=== PATIENT | female | born 1960 | race Caucasian/White ===

== ENCOUNTER 2018-10-08 19:12 | Inpatient (IN) | payer BC ==
[~2018-10-08] VITALS: Ht 172.7 cm; Wt 71.2 kg
[2018-10-08 19:12] VITALS: BP 95/55
--- NOTE | 2018-10-08 19:12 | NUR ---
MELQUIADES DEMARCO ALS TO ER BED 05
--- NOTE | 2018-10-08 20:00 | NUR ---
BLOOD DRAWN BY SPORTS PHOTOGRAPHER.
[2018-10-08 20:17] LABS: HEMOGLOBIN 9.9 g/dL (12.0-16.0); MEAN CORPUSCULAR HEMOGLOBIN 28 pg (27-31); MEAN CORPUSCULAR HGB CONC 33 g/dL (33-37); PLATELET COUNT (AUTO) 458 K/uL (140-450); RED BLOOD CELL COUNT(AUTO) 3.54 MIL/uL (4.20-5.40); RED CELL DISTRIBUTION WIDTH 15.2 % (11.6-13.7); WHITE BLOOD COUNT (AUTO) 21.8 K/uL (4.8-10.8)
--- NOTE | 2018-10-08 20:33 | NUR ---
GAUGE 18 IV LINE ESTABLISHED TO THE RIGHT WRIST.
--- NOTE | 2018-10-08 20:35 | NUR ---
URINE SPECIMEN COLLECTED AND SENT TO THE LAB.
[2018-10-08 20:46] LABS: ALBUMIN 1.7 g/dL (3.4-5.0); ANION GAP 11.8 (8-16); CARBON DIOXIDE 28.5 mmol/L (21-32); POTASSIUM 4.3 mmol/L (3.5-5.1); TOTAL BILIRUBIN 0.2 mg/dL (0.0-1.0)
[2018-10-08 21:02] LABS: APPEARANCE,URINE HAZY (CLEAR); BILIRUBIN,URINE NEGATIVE (NEGATIVE); BLOOD, URINE 1+ (NEGATIVE); COLOR,URINE YELLOW (YELLOW); LEUKOCYTE ESTERASE ,URINE 3+ (NEGATIVE); NITRITE, URINE NEGATIVE (NEGATIVE); UGLUCOSE NEGATIVE (NEGATIVE)
[2018-10-08 21:03] LABS: LYMPHOCYTES % (MANUAL) 6 % (20-46); METAMYELOCYTES % 2 % (0-0); MONOCYTES % (MANUAL) 1 % (5-12)
[2018-10-08] MEDS ORDERED: VANCOMYCIN 1,000 MG in DEXTROSE 5% 250 ML IV ONE (21:05)
[2018-10-08] MEDS ORDERED: NACL 0.9% 2,500 ML IV ONE (21:05)
[2018-10-08] MEDS ORDERED: PIPERACILLIN/TAZOBACTAM 3.375 GM in DEXTROSE 5% 50 ML IV ONE (21:05)
[2018-10-08 21:12] LABS: RBC,URINE 0-5 /HPF (0-5)
[2018-10-08 21:13] LABS: URINE AMORPHOUS URATE 2+ /HPF (None Seen); WBC,URINE TOO MANY TO COUNT /HPF (0-5)
--- NOTE | 2018-10-08 21:47 | NUR ---
NS 1 LITER BOLUS AND ZOSYN 3.375 GM IVPB GIVEN ORDERED.
[2018-10-08] MEDS ORDERED: PIPERACILLIN/TAZOBACTAM 3.375 GM VIAL IV ONE (21:49)
[2018-10-08] MEDS ORDERED: VANCOMYCIN 1,000 MG VIAL ONE (21:49)
[2018-10-08] MEDS ORDERED: DOCUSATE SODIUM 100 MG GELCAP PO PRN (22:05)
[2018-10-08] MEDS ORDERED: ACETAMINOPHEN 325 MG TAB PO PRN (22:05)
[2018-10-08] MEDS ORDERED: FAMOTIDINE 20 MG/2 ML VIAL IV PRN (22:05)
--- NOTE | 2018-10-08 22:10 | NUR ---
VANCOMYCIN 1 GM IVPB GIVEN.
[2018-10-08] MEDS ORDERED: NACL 0.9% 1,000 ML IV ONE ×2 (22:15)
--- NOTE | 2018-10-08 22:41 | NUR ---
NS 1 LITER BOLUS COMPLETED. NS 1 LITER AT 100 ML STARTED. AT BEDSIDE TALKING TO FAMILY RE: ADMISSION.
--- NOTE | 2018-10-08 22:50 | NUR ---
SPOKE TO YULISSA FROM [facility] REGARDING MEDICATIONS THAT WERE GIVEN AT FACILITY, WILL FAX OVER A COPY OF RECORDS. GIANA MADE AWARE
--- NOTE | 2018-10-08 23:00 | NUR ---
ADMITTED TO TELEMETRY UNIT FOR PNEUMONIA UNDER THE CARE OF DR.JHUJHAR CASPER. PT. WILL BE GOING TO ROOM 124-B. PHOTOS TAKEN ON PT'S. WOUNDS.
[2018-10-08] MEDS ORDERED: VANCOMYCIN PER PHARMACY MC PRN (23:05)
[2018-10-08] MEDS ORDERED: NON ADHERENT DRESSING TP PRN (23:10)
[2018-10-08] MEDS ORDERED: DEXT 5% /NACL 0.9% 1,000 ML IV ONE (23:10)
[2018-10-08] MEDS ORDERED: NACL 0.9% IRR 250 ML BOTTLE IR PRN (23:10)
[2018-10-08] MEDS ORDERED: SKINTEGRITY HYDROGEL TP PRN (23:10)
[2018-10-08] MEDS ORDERED: MILD SOAP AND WATER TP PRN (23:10)
[2018-10-08 23:26] LABS: PROTHROMBIN TIME 9.6 secs (10.8-13.4)
[2018-10-08 23:33] VITALS: BP 98/43
[2018-10-08 23:35] LABS: BARBITURATE, URINE NEG. ng/ml (NEG <=200); BENZODIAZEPINE, URINE NEG. ng/mL (NEG <=200); CANNABINOID, URINE NEG. ng/mL (NEG <=50); COCAINE, URINE NEG. ng/mL (NEG <=300); OPIATE, URINE NEG. ng/mL (NEG <=2000); PHENCYCLIDINE SCREEN,URINE NEG. ng/mL (NEG <=25)
[2018-10-08 23:43] LABS: FREE T4 (FREE THYROXINE) 1.34 ng/dL (0.76-1.46); MAGNESIUM 2.1 mg/dL (1.8-2.4); THYROID STIMULATING HORMONE 1.81 uIU/mL (0.34-3.74)
[2018-10-08] MEDS ORDERED: [UNRECOGNIZED DRUG - CODE] PO (23:44)
[2018-10-08] MEDS ORDERED: MULT-1328 GT (23:44)
[2018-10-08] MEDS ORDERED: CALC-105 GT (23:44)
[2018-10-08] MEDS ORDERED: CITA10TA11 GT (23:50)
[2018-10-08] MEDS ORDERED: ACET-2619 GT (23:50)
[2018-10-08] MEDS ORDERED: FAMO-90 PO (23:50)
[2018-10-08] MEDS ORDERED: LOV40I SUBQ (23:50)
[2018-10-08] MEDS ORDERED: HYDR2TAB6 GT (23:50)
[2018-10-08] MEDS ORDERED: GLU1I SUBQ (23:50)
--- NOTE | 2018-10-08 23:53 | NUR ---
PT. WENT ON RAPID AFIB AT BS=[phone]. IV FLUIDS GIVEN WIDE OPEN. CARDIZEM 10 IVP VERBALLY ORDERED.
[2018-10-08] MEDS ORDERED: DILTIAZEM 25 MG/5 ML VIAL IVP ONE (23:55)
[2018-10-09] VITALS (78 sets, daily range): BP systolic 83–149; BP diastolic 35–92
[2018-10-09] MEDS ORDERED: MULT-1944 PO
[2018-10-09] MEDS ORDERED: ZINC220C12 PO
[2018-10-09] MEDS ORDERED: PRO5 PO
[2018-10-09] MEDS ORDERED: CHLO480L1 PO
[2018-10-09] MEDS ORDERED: BACL10TA4 PO
--- NOTE | 2018-10-09 | NUR ---
ANOTHER LITER OF NS BOLUS GIVEN. 12 LEAD EKG DONE.
[2018-10-09] MEDS ORDERED: DOCUSATE 100 MG/10 ML UDC GT PRN (00:05)
--- NOTE | 2018-10-09 00:27 | NUR ---
BP LOW AT 83/39. MD MADE AWARE. MD TO HOLD OFF ON DILTIAZEM. LEVOPHED 100 MCG IVP GIVEN ORDERED.
[2018-10-09] MEDS ORDERED: NOREPINEPHRINE 4 MG/4 ML VIAL IV ONE (00:36)
[2018-10-09] MEDS ORDERED: AMIODARONE 150 MG in DEXTROSE 5% 100 ML IV ONE ×2 (00:45→01:00)
--- NOTE | 2018-10-09 00:48 | NUR ---
AMIODARONE 150 MG IVP GIVEN.
--- NOTE | 2018-10-09 00:55 | NUR ---
HR BETTER BU STIL 130-140'S. ANOTHER OSE OF AMIODARONE 150 MG IVP GIVEN ORDERED.
[2018-10-09] MEDS ORDERED: AMIODARONE 150 MG/3 ML VIAL IV ONE ×3 (00:59→21:07)
[2018-10-09] MEDS ORDERED: MIDODRINE 5 MG TAB GT ONE (01:00)
--- NOTE | 2018-10-09 01:13 | NUR ---
BP BETTER AT 103/60 HR=60'S. PT. TRANSFERRED TO FLOOR VIA RNEY. REPORT GIVEN TO TRE CARRION. PT. WENT TO ICU ROOM 7.
--- NOTE | 2018-10-09 01:20 | NUR ---
PATIENT CAME FROM EMERGENCY VIA [facility]. REPORT GIVEN BY DYAN. PT ON TRACH TO VENT, COLOSTOMY BAG, WIGGINS BAG, NO FLUIDS. IV IN RIGHT THUMB. BED IN LOWEST POSITION, HOB ELEVATED 30 DEGREES, WOUNDS CHECKED WITH MD WADSWORTH. 2 BILATERAL BUTTOCKS STAGE 4 AND ONE SACRAL PRESSURE ULCER. ONE HEEL WOUND SCABBED OVER. SMALL SCABS IN BOTH ARMS BILATERALLY.DRESSINGS IN PLACE. BP LOW. GTUBE PRESENT. STABLE AT THIS TIME. DAUGHTER ROBINA PRESENT TO HELP WITH ADMISSION ASSESSMENT. MD CALLED TO FOLLOW UP WITH PATIENT. WILL CONTINUE TO MONITOR. OPENS EYES TO TALKING. COLOR WNL. LUNGS RHONCHI. HR CLEAR AND REGULAR. URINE PRESENT IN WIGGINS BAG AND STOOL IN COLOSTOMY BAG. WILL CONTINUE TO MONITOR. NO S/S OF DISTRESS. PERRL
[2018-10-09] MEDS ORDERED: NOREPINEPHRINE IV STA (01:21)
[2018-10-09] MEDS ORDERED: NACL 0.9% IV STA (01:21)
--- NOTE | 2018-10-09 01:38 | NUR ---
PHONE CALL TO DR BARRY; MADE AWARE PT ADMITTED HERE IN ICU.QUESTIONS ANSWERED.MD TO SEE PT.
[2018-10-09] MEDS ORDERED: GLUCAGON 1 MG VIAL SUBQ PRN (02:35)
[2018-10-09] MEDS ORDERED: MAGNESIUM HYDROXIDE 2400 MG/30 ML UDC GT PRN (02:35)
[2018-10-09] MEDS ORDERED: ACETAMINOPHEN 325 MG TAB GT PRN (02:35)
--- NOTE | 2018-10-09 03:00 | NUR ---
MEDS GIVEN AND PATIENT TOLERATING WELL.WILL CONTINUE TO FOLLOW UP
[2018-10-09] MEDS: MIDODRINE 5 MG TAB PO SCH ×4 (03:25→21:17)
[2018-10-09] MEDS ORDERED: DEXT 5% /NACL 0.9% 1,000 ML IV SCH (05:25)
[2018-10-09] MEDS ORDERED: NOREPINEPHRINE 4 MG in DEXTROSE 5% 250 ML IV PRN (05:30)
[2018-10-09] MEDS ORDERED: PIPERACILLIN/TAZOBACTAM 2.25 GM VIAL IV ONE (05:33)
[2018-10-09] MEDS ORDERED: ALBUTEROL SULFATE/IPRATROPIU 3 ML SOL IH PRN (05:40)
[2018-10-09] MEDS: ALBUTEROL SULFATE/IPRATROPIU 3 ML SOL IH SCH ×3 (06:00→19:06)
[2018-10-09] MEDS ORDERED: ALBUTEROL SULFATE/IPRATROPIU 3 ML SOL IH SCH (06:00)
[2018-10-09] MEDS: PIPERACILLIN/TAZOBACTAM 2.25 GM in DEXTROSE 5% 50 ML IV SCH ×3 (06:07→18:03)
[2018-10-09] MEDS ORDERED: DOPamine 400 MG/D5W PREMIX 250 ML IV SCH (06:30)
[2018-10-09] MEDS ORDERED: NACL 0.9% 1,000 ML IV ONE ×2 (06:30)
--- NOTE | 2018-10-09 06:32 | NUR ---
DR. BARRY PRESENT AT BEDSIDE. WILL FOLLOW UP ON NEW ORDERS. WILL CONTINUE TO MONITOR.
--- NOTE | 2018-10-09 06:40 | NUR ---
dr samayoa at bedside' updated on pts present condition.questions answered. ordered to give 1 liter normal saline bolus and to start dopamine at 5mcg/kg/min; dr samayoa aware that pt on has peripheral iv at this time to rt hand
--- NOTE | 2018-10-09 06:42 | NUR ---
rec'd pt on carescape vent settings ac 14 vt 450 peep 5 fio2 40% alarms on and audible and ambu bag at side of rayna and vent is plugged into red outlet, no hhn given pt is sleeping with no signs of distress at this time, b\s are rhonchi bilaterally, sxn pt moderate amt of cream color secretions,pt is trach with shiley 6 and skin integrity is intact.
[2018-10-09] MEDS ORDERED: DOPamine 400 MG/D5W PREMIX 250 ML IV ONE (06:44)
--- NOTE | 2018-10-09 06:47 | NUR ---
DR. WADSWORTH AT PATIENT BEDSIDE. WILL FOLLOW UP IF ORDERS GIVEN. WILL CONTINUE AMY MONITOR
--- NOTE | 2018-10-09 08:00 | NUR ---
PATIENT OPENS EYES SPONTANEOUSLY, NOT OBEYING COMMANDS. WITH TRACHEOSTOMY TO VENTILATOR FIO2 40% VT 450 PEEP 5,AC14, SO2 >94%, ATRIAL FIBRILLATION ON MONITOR, WITH PEG TUBE-CLAMPED, NO RESIDUALS AND PATENT ON AUSCULTATION, WITH WIGGINS CATHETER CLEAR YELLOW URINE NOTED, CONTRACTED UPPER ARMS, IV PERIPHERAL LINE GAUGE 18 AT RIGHT THUMB NORMAL SALINE 100 ML/HR./ DOPAMINE 5 MCG/KG/MIN. TURNED OFF DUE TO HEART RATE >100
[2018-10-09] MEDS: HYDROcodone/APAP 7.5/325 MG 1 TAB PO PRN ×2 (08:09→13:46)
[2018-10-09] MEDS: CALCIUM CARB/VIT-D 500 MG/200 IU 1 TAB GT SCH (08:09)
[2018-10-09] MEDS: BACLOFEN 10 MG TAB PO SCH ×3 (08:09→16:53)
[2018-10-09] MEDS: FAMOTIDINE 20 MG TAB GT SCH ×2 (08:09→21:18)
[2018-10-09] MEDS: ZINC SULF 220 MG CAP GT SCH (08:09)
[2018-10-09] MEDS: MULTIVITAMIN/MINERALS 1 TAB GT SCH (08:10)
[2018-10-09] MEDS: LACTOBACILLUS RHAMNOSUS GG 1 EACH CAP GT SCH (08:10)
[2018-10-09] MEDS: LORazepam 2 MG/ML VIAL IM/IVP PRN ×2 (08:31→22:14)
[2018-10-09] MEDS ORDERED: NON-FORMULARY ITEM (Chlorhexidine Gluconate (Periogard 480 Ml) 15 ML) PO SCH (09:00)
[2018-10-09] MEDS ORDERED: LACTOBACILLUS RHAMNOSUS GG 1 EACH CAP PO SCH (09:00)
[2018-10-09] MEDS ORDERED: [UNRECOGNIZED DRUG - MIXTURE] PO SCH (09:00)
--- NOTE | 2018-10-09 09:30 | NUR ---
INFORMED DR. GUZMAN OF PATIENT'S SBP <80. PER DR. GUZMAN SHE WILL INSERT CENTRAL LINE FIRST AND THEN START LEVOPHED. CALLED PHARMACY TO REQUEST STOCK OF LEVOPHED.
[2018-10-09] MEDS: CITALOPRAM 20 MG TAB GT SCH (09:31)
[2018-10-09 10:03] LABS: HEMATOCRIT 26.7 % (36-48); HEMOGLOBIN 8.7 g/dL (12.0-16.0); MEAN CORPUSCULAR HEMOGLOBIN 28 pg (27-31); MEAN CORPUSCULAR HGB CONC 33 g/dL (33-37); MEAN CORPUSCULAR VOLUME 86.5 fL (80-94); PLATELET COUNT (AUTO) 359 K/uL (140-450); RED BLOOD CELL COUNT(AUTO) 3.09 MIL/uL (4.20-5.40); RED CELL DISTRIBUTION WIDTH 15.1 % (11.6-13.7); WHITE BLOOD COUNT (AUTO) 18.9 K/uL (4.8-10.8)
--- NOTE | 2018-10-09 10:23 | NUR ---
DR. GUZMAN AT BEDSIDE FOR CENTRAL LINE INSERTION
--- NOTE | 2018-10-09 10:41 | NUR ---
INFORMED DR. GUZMAN OF PATIENT'S LATEST LACTIC ACID LEVEL
[2018-10-09 10:46] LABS: BASOPHILS % (MANUAL) 0 % (0-2); EOSINOPHILS % (MANUAL) 0 % (0-4); LYMPHOCYTES % (MANUAL) 6 % (20-46); METAMYELOCYTES % 1 % (0-0); MONOCYTES % (MANUAL) 5 % (5-12)
[2018-10-09 10:51] LABS: ANION GAP 15.9 (8-16); CARBON DIOXIDE 23.3 mmol/L (21-32); POTASSIUM 3.2 mmol/L (3.5-5.1)
[2018-10-09 10:53] LABS: CREATININE 1.6 mg/dL (0.6-1.3)
[2018-10-09] MEDS: NACL 0.9% 1,000 ML IV SCH (11:28)
[2018-10-09] MEDS ORDERED: POTASSIUM CHLORIDE 40 MEQ, LIDOCAINE MPF 1% - 5 mL VIAL 25 MG in NACL 0.9% 250 ML IV ONE (13:10)
[2018-10-09] MEDS ORDERED: CALCIUM ACETATE 667 MG TAB PO SCH (13:19)
[2018-10-09] MEDS ORDERED: THERAHONEY GEL 42.5 GM TP PRN (13:20)
[2018-10-09] MEDS: HYDRAGUARD CREAM TP PRN (14:04)
[2018-10-09] MEDS: Z-GUARD PASTE TP PRN (14:04)
--- NOTE | 2018-10-09 16:05 | NUR ---
DR. BENSON AT BEDSIDE MADE AWARE PATIENT HAD EPISODE OF ATRIAL FIBRILLATION AVR AT START OF SHIFT AND ALSO NOW PATIENT IS BACK TO ATRIAL FIBRILLATION RVR. ORDERS RECEIVED FOR DIGOXIN
[2018-10-09] MEDS ORDERED: DIGOXIN 0.25 MG/ML AMP IV SCH (16:10)
[2018-10-09] MEDS ORDERED: VANCOMYCIN HCL 750 MG in DEXTROSE 5% 250 ML IV SCH (18:00)
--- NOTE | 2018-10-09 19:03 | NUR ---
PAGED DR. PERES THROUGH HIS EXCHANGE THAT PATIENT IS STILL AFIB AFTER DIGOXIN IV WAS GIVEN
--- NOTE | 2018-10-09 19:16 | NUR ---
Received pt on vent support at documented settings, suctioned moderate amounts of thick green yellow secretions, hhn tx given, tolerated well, no resp distress or SOB noted at this time, Shiley 6 trach secured/patent/midline, alarms set and audible, ambu bag at bedside, vent plugged into red outlet and wiped down, cont pulse ox on, will cont to monitor.
--- NOTE | 2018-10-09 19:25 | NUR ---
RECEIVED CHANGE OF SHIFT REPORT FROM AM NURSE MONICA. PATIENT IS SEDATED AND ON TRACH TO VENT FIO2 40%, AC 14, VT 450, AND FLOW 45 L/MIN. PERRLA IS PRESENT. SKIN IS WARM, DRY, WITH PRESSURE ULCERS ON BILATERAL BUTTOCKS, SACRAL AREA, AND RIGHT HEEL. LUNG SOUNDS ARE CLEAR RIGHT UPPER/LOWER LOBES, BUT FINE CRACKLES ARE HEARD ON LEFT UPPER/LOWER LOBES. SINUS TACH ON TELESALES SPECIALIST WITH INTERMITTENT A FIB. S1 AND S2 SOUND PRESENT. LEFT THUMB PATENT 18 GAUGE IV SITE WITH DRESSING/SITE DRY AND INTACT. RIGHT IJ TRIPLE LUMEN CENTRAL LINE WITH ALL LUMENS PATENT AND DRESSING/SITE DRY AND INTACT. NORMAL SALINE RUNNING AT 100ML/H, 5ML/H OF VANCOMYCIN, AND 1 MCH/MIN OF lEVOPHED. PATIENT HAS LEFT SIDE COLOSTOMY BAG WITH SURROUNDING SITE DRY/INTACT, WIGGINS CATHETER IN PLACE WITH CLEAR YELLOW URINE NOTED. PATIENT HAS RIGHT PEG TUBE WITH NO RESIDUALS NOTED, AND LINE IS PATENT. PATIENT'S BED IS IN LOW POSITION WITH CALL LIGHT IN REACH. WILL CONTINUE TO MONITOR
[2018-10-09] MEDS ORDERED: AMIODARONE 450 MG in DEXTROSE 5% 250 ML IV SCH (19:35)
--- NOTE | 2018-10-09 19:37 | NUR ---
DR. PERES CALLED BACK AND INFORMED OF PATIENT'S ATRIAL FIBRILLATION RVR. ORDERS RECEIVED TO GIVE 150 MG AMIODARONE IV PUSH ONCE, START PATIENT ON AMIODARONE DRIP PER PROTOCOL OVER 24 HOURS READ BACK. INFORMED RESIDENT DR. WOOD OF THIS ORDER
[2018-10-09] MEDS ORDERED: AMIODARONE 150 MG in DEXTROSE 5% 100 ML IV SCH (21:00)
[2018-10-09] MEDS ORDERED: AMIODARONE 450 MG/9 ML VIAL IV ONE (21:15)
[2018-10-09] MEDS: CHLORHEXIDINE GLUCONATE 0.12% 473 ML LIQ MM SCH (21:55)
--- NOTE | 2018-10-09 22:14 | NUR ---
GAVE ATIVAN 1 MG PRN FOR ANXIETY/RESTLESSNESS. PATIENT TOLERATED MEDICATION WELL. WILL CONTINUE TO MONITOR.
[2018-10-09] MEDS: METOPROLOL 5 MG/5 ML VIAL IVP PRN (23:25)
--- NOTE | 2018-10-09 23:25 | NUR ---
GAVE LOPRESSOR 5MG IVP PRN FOR HEART RATE GREATER THAN 110. PATIENT TOLERATED MEDICATION WELL AND HEART RATE DECREASE TO DESIRED RATE BELOW 110. WILL CONTINUE TO MONITOR.
[2018-10-10] VITALS (48 sets, daily range): BP systolic 80–159; BP diastolic 5–97
[2018-10-10] MEDS: PIPERACILLIN/TAZOBACTAM 2.25 GM in DEXTROSE 5% 50 ML IV SCH ×5 (00:50→23:54)
--- NOTE | 2018-10-10 01:10 | NUR ---
PATIENT RESTING IN BED. NO COMPLAINTS NOR SIGNS OF ACUTE DISTRESS AT THIS TIME. WILL CONTINUE TO MONITOR.
[2018-10-10] MEDS: LORazepam 2 MG/ML VIAL IM/IVP PRN ×2 (02:17→15:00)
--- NOTE | 2018-10-10 02:17 | NUR ---
GAVE ATIVAN 1 MG PRN FOR ANXIETY/RESTLESSNESS. PATIENT TOLERATED MEDICATION WELL. WILL CONTINUE TO MONITOR.
[2018-10-10] MEDS ORDERED: AMIODARONE 450 MG/9 ML VIAL IV ONE (03:52)
--- NOTE | 2018-10-10 04:30 | NUR ---
MADE AWARE THAT AMIODORANE DRIPS WAS ON HOLD D/T BRADYCARDIA HR 54-58X/MIN. ALSO AWARE THAT LEVOPHED WAS RE STARTED AT 1 MCG/MIND/T LOW BP 80/36
[2018-10-10 04:51] LABS: BASOPHILS % (AUTO) 0.1 % (0.0-2.0); EOSINOPHILS # (AUTO) 0.1 K/uL (0-0.4); EOSINOPHILS % (AUTO) 0.7 % (0.0-4.0); HEMATOCRIT 24.4 % (36-48); HEMOGLOBIN 7.9 g/dL (12.0-16.0); LYMPHOCYTES % (AUTO) 7.3 % (20.5-51.1); MEAN CORPUSCULAR HEMOGLOBIN 28 pg (27-31); MEAN CORPUSCULAR HGB CONC 33 g/dL (33-37); MEAN CORPUSCULAR VOLUME 87.2 fL (80-94); MONOCYTES # (AUTO) 0.8 K/uL (0.8-1.0); MONOCYTES % (AUTO) 5.9 % (1.7-9.3); PLATELET COUNT (AUTO) 328 K/uL (140-450); WHITE BLOOD COUNT (AUTO) 13.9 K/uL (4.8-10.8)
[2018-10-10] MEDS: THERAHONEY GEL 42.5 GM TP SCH ×2 (05:00→13:49)
--- NOTE | 2018-10-10 05:00 | NUR ---
PERFORMED WOUND CARE ON ALL PRESSURE ULCERS AND CHANGED ALL DRESSINGS. GAVE SPONGE BED BATH. PERFORMED ESTEBAN/WIGGINS CATHETER CARE. PERFORMED ORAL CARE. CHANGED ALL LINENS. PATIENT TOLERATED ALL CARE AT THIS TIME WELL. WILL CONTINUE TO MONITOR.
[2018-10-10] MEDS: HYDROcodone/APAP 7.5/325 MG 1 TAB PO PRN ×2 (05:20→13:48)
--- NOTE | 2018-10-10 05:20 | NUR ---
GAVE PRN NORCO 7.5/325MG (1 TABLET) PO FOR MODERATE PAIN (FLACC: 4). PATIENT TOLERATED MEDICATION WELL. WILL CONTINUE TO MONITOR.
[2018-10-10 05:32] LABS: ANION GAP 12.4 (8-16); CARBON DIOXIDE 26.1 mmol/L (21-32); POTASSIUM 3.5 mmol/L (3.5-5.1)
[2018-10-10 05:37] LABS: MAGNESIUM 1.6 mg/dL (1.8-2.4)
[2018-10-10] MEDS: MIDODRINE 5 MG TAB PO SCH ×3 (05:57→20:19)
[2018-10-10] MEDS: ALBUTEROL SULFATE/IPRATROPIU 3 ML SOL IH SCH ×3 (06:24→19:19)
--- NOTE | 2018-10-10 06:24 | NUR ---
RECEIVED PT ON CARESCAPE ON DOCUMENTED, ALARMS ARE ON AUDIBLE, PTS TRACH SHILEY 6 IS SECURE, PT IN HF IRRITABLE, HHN GIVEN I\L WITH 3 MG DUONEB, BMV HOB, VENT PLUGGED INTO RED OUTLET
[2018-10-10] MEDS ORDERED: MAG SULF 2000 MG/WATER PREMIX 50 ML IV SCH (07:00)
--- NOTE | 2018-10-10 07:00 | NUR ---
PER DR.FERNANDEZ GROSS PUT ON HOLD AT THIS TIME.
--- NOTE | 2018-10-10 07:18 | NUR ---
GAVE CHANGE OF SHIFT BEDSIDE REPORT TO AM NURSE. PATIENT ASLEEP AT THIS TIME.
--- NOTE | 2018-10-10 07:56 | NUR ---
PATIENT HAS BEEN SCREENED AND CATEGORIZED HIGH NUTRITION RISK. PATIENT WILL BE SEEN WITHIN 1-2 DAYS OF ADMISSION. 10/10/[address]
--- NOTE | 2018-10-10 08:00 | NUR ---
PATIENT AWAKE, DOES NOT OBEY COMMANDS OR MAKE NEEDS KNOWN, WITH TRACHEOSTOMY TO VENTILATOR AC 14 FIO2 30% VT 450 PEEP 5 SO2 >94%, SINUS RHYTHM ON MONITOR, WITH PEG TUBE AND JEVITY ONGOING 50 ML/HR., NO GASTRIC RESIDUALS UPON CHECKING, SOFT ABDOMEN, COLOSTOMY IN LEFT LOWER QUADRANT WITH SOFT BROWN STOOL NOTED IN THE BAG, WITH WIGGINS CATHETER, CLEAR YELLOW URINE NOTED, WITH CENTRAL LINE RIGHT INTERNAL JUGULAR TRIPLE LUMEN-NORMAL SALINE 100 ML/HR INFUSING, CENTRAL LINE SITE ASYMPTOMATIC, BOTH UPPER ARMS CONTRACTED, BILATERAL LEGS WITH FOAM BOOTS, DECUBITUS ULCER AT LEFT AND RIGHT BUTTOCKS AND IN THE SACRAL AREA, RIGHT HEEL ALL WITH CLEAN DRY INTACT DRESSING
[2018-10-10] MEDS: CHLORHEXIDINE GLUCONATE 0.12% 473 ML LIQ MM SCH ×2 (09:00→20:40)
[2018-10-10] MEDS: MULTIVITAMIN/MINERALS 1 TAB GT SCH (09:13)
[2018-10-10] MEDS: ZINC SULF 220 MG CAP GT SCH (09:13)
[2018-10-10] MEDS: CALCIUM CARB/VIT-D 500 MG/200 IU 1 TAB GT SCH (09:13)
[2018-10-10] MEDS: FAMOTIDINE 20 MG TAB GT SCH ×2 (09:13→20:19)
[2018-10-10] MEDS: LACTOBACILLUS RHAMNOSUS GG 1 EACH CAP GT SCH (09:14)
[2018-10-10] MEDS: BACLOFEN 10 MG TAB PO SCH ×3 (09:14→16:33)
[2018-10-10] MEDS: CITALOPRAM 20 MG TAB GT SCH (09:16)
--- NOTE | 2018-10-10 10:35 | NUR ---
DR. BENSON AT BEDSIDE
--- NOTE | 2018-10-10 10:36 | NUR ---
PATIENT'S DAUGHTER ROBINA ALSO AT BEDSIDE AND TALKED TO DR. BENSON
[2018-10-10] MEDS ORDERED: fentaNYL 0.05 MG/ML VIAL IVP PRN (10:40)
--- NOTE | 2018-10-10 13:00 | NUR ---
WOUND CARE DONE
[2018-10-10] MEDS: NACL 0.9% 1,000 ML IV SCH ×3 (13:49→18:23)
--- NOTE | 2018-10-10 14:45 | NUR ---
RD RECOMMENDATIONS: 1. RECOMMEND INCREASE JEVITY 1.2 TO 70ML/HR TO PROVIDE 2160KCAL, 92G PROTEIN AND 1356ML FLUID. THIS MEETS 100% OF CALORIC AND PROTEIN NEEDS. 2. RECOMMEND ADDING VITAMIN C 500MG BID FOR WOUND HEALING. 3. RD WILL F/U 2-3 DAYS; HIGH RISK. ANN NAIK, RD
[2018-10-10] MEDS: VANCOMYCIN 1,000 MG in DEXTROSE 5% 250 ML IV SCH (15:00)
--- NOTE | 2018-10-10 18:52 | NUR ---
PATIENT CONTINUES TO BE AWAKE, DOES NOT OBEY COMMANDS, SINUS RHYTHM ON MONITOR, NO DRIPS, INVASIVE LINES IN SITU
--- NOTE | 2018-10-10 19:11 | NUR ---
REPORT GIVEN TO NIGHT RN
--- NOTE | 2018-10-10 19:20 | NUR ---
RECEIVED CHANGE OF SHIFT REPORT FROM AM NURSE MONICA. PATIENT IS LETHARGIC AND ON TRACH TO VENT FIO2 30%, AC 14, VT 450, AND FLOW 45 L/MIN. PERRLA IS PRESENT WITH PUPILS BILATERALLY SIZE 3MM. SKIN IS WARM, DRY, WITH PRESSURE ULCERS ON BILATERAL BUTTOCKS, SACRAL AREA, AND RIGHT HEEL - ALL DRESSINGS ARE DRY AND INTACT. PULSES 2+ BILATERAL UPPER AND LOWER EXTREMITIES. LUNG SOUNDS ARE CLEAR BUT DIMINISHED BILATERALLY IN THE LOWER LOBES. NSR ON MODEL HOME SALES GREETER. S1 AND S2 SOUND PRESENT. LEFT THUMB PATENT 18 GAUGE IV SITE WITH DRESSING/SITE DRY AND INTACT. RIGHT IJ TRIPLE LUMEN CENTRAL LINE WITH ALL LUMENS PATENT AND DRESSING/SITE DRY AND INTACT. NORMAL SALINE RUNNING AT 100ML/HR, AND 50ML/HR OF ZOSIN. PATIENT IS ON G TUBE FEEDING RUNNING JEVITY 1.2 AT 70ML/HR WITH 100CC H2O FLUSH Q6H - NO GASTRIC RESIDUALS AT THIS TIME, AND G TUBE IS PATENT. WIGGINS CATHETER IN PLACE, URINE IS ROBINA AND CLEAR. BED LEFT IN LOW SEMI FOWLERS POSITION, SIDE RAILS UPX2 WITH CALL LIGHT WITHIN REACH. WILL CONTINUE TO MONITOR.
--- NOTE | 2018-10-10 19:27 | NUR ---
Received pt on vent support at documented settings, suctioned small amounts of thick green yellow secretions, hhn tx given, tolerated well, Shiley 6 trach secured/patent/midline, alarms set and audible, vent plugged into red outlet, ambu bag at bedside, cont pulse ox on, will cont to monitor.
--- NOTE | 2018-10-10 20:15 | NUR ---
INFORMED DR. WOOD OF PATIENT'S LOW HGB: 7.9 BEFORE GIVING THE SCHEDULED [address] WOOD GAVE APPROVAL TO CONTINUE WITH SCHEDULED HEPARIN INJECTION. WILL CONTINUE TO MONITOR PATIENT.
--- NOTE | 2018-10-10 20:30 | NUR ---
PERFORMED SCHEDULED ORAL CARE, REPOSITIONED PATIENT, AND CHANGED BEDSIDE TOWEL. NO COMPLAINTS NOR SIGNS OF ACUTE DISTRESS AT THIS TIME. WILL CONTINUE TO MONITOR.
--- NOTE | 2018-10-10 22:20 | NUR ---
PATIENT RESTING IN BED. NO COMPLAINTS NOR SIGNS OF ACUTE DISTRESS AT THIS TIME. WILL CONTINUE TO MONITOR.
[2018-10-11] VITALS (24 sets, daily range): BP systolic 104–144; BP diastolic 60–87
[2018-10-11] MEDS: NACL 0.9% 1,000 ML IV SCH ×3 (00:22→19:01)
--- NOTE | 2018-10-11 01:05 | NUR ---
PATIENT RESTING IN BED, AND REPOSITION HER PILLOW TO A MORE COMFORTABLE POSITION. NO COMPLAINTS NOR SIGNS OF ACUTE DISTRESS AT THIS TIME. WILL CONTINUE TO MONITOR.
[2018-10-11] MEDS: THERAHONEY GEL 42.5 GM TP SCH ×2 (01:14→13:18)
[2018-10-11] MEDS: MIDODRINE 5 MG TAB PO SCH ×3 (04:47→20:03)
[2018-10-11 04:56] LABS: ANION GAP 11.9 (8-16); CARBON DIOXIDE 23.3 mmol/L (21-32); CREATININE 0.8 mg/dL (0.6-1.3); POTASSIUM 3.2 mmol/L (3.5-5.1)
[2018-10-11 04:59] LABS: MAGNESIUM 1.5 mg/dL (1.8-2.4)
[2018-10-11] MEDS: PIPERACILLIN/TAZOBACTAM 2.25 GM in DEXTROSE 5% 50 ML IV SCH ×3 (06:06→18:07)
[2018-10-11] MEDS: ALBUTEROL SULFATE/IPRATROPIU 3 ML SOL IH SCH ×3 (06:40→19:24)
[2018-10-11 06:43] LABS: PHOSPHORUS 3.1 mg/dL (2.5-4.9)
--- NOTE | 2018-10-11 07:20 | NUR ---
ENDORSED PATIENT TO AM NURSE. PATIENT SLEEPING COMFORTABLY AT THIS TIME.
[2018-10-11 07:44] LABS: MEAN CORPUSCULAR HGB CONC 33 g/dL (33-37); PLATELET COUNT (AUTO) 307 K/uL (140-450)
--- NOTE | 2018-10-11 07:45 | NUR ---
RECEIVED BED SIDE REPORT FROM NIGHT NURSE. PT IT AWAKE AND RESPONSE TO SIMPLE COMMANDS WITH MOUTH WORDS AND FACIAL EXPRESSION. PERRL. TRACH TO VENT AC 14, TV 450, 30 FIO2, PEEP 5. BILATERAL LUNGS SOUND WITH RHONCHI. SUCTIONED MODERATE AMOUNT OF WHITE SPUTUM. BILATERAL UPPER AND LOWER EXTREMITIES WITH SEVERE CONTRACTURES. RIGHT IJ WITH TRIPLE LUMEN AND RIGHT THUMB 18G SALINE LOCK. ALL PATENT AND ASYMPTOMATIC. IVF RUNNING AT 100 CC/HR. GT RUNNING WITH JEVITY 1.2 WITH 70CC/HR AND H2O 100ML Q6HR. RESIDUAL 5ML NOTED FROM GT. HOB ELEVATED AT 30 DEGREES. COLOSTOMY ON LEFT ABD WITH SMALL AMOUNT OF PASTY+ LIQUID BROWN STOOL NOTED IN THE BAG. WIGGINS CATHETER DRAINING CLEAR YELLOW URINE. BILATERAL HEEL PROTECTOR IN PLACE. DRESSING INTACT ON THE BUTTOCKS AND SACRUM AREA. AFEBRILE. CALL LIGHT IN REACH AND WILL CONTINUE TO MONITOR.
--- NOTE | 2018-10-11 08:00 | NUR ---
DR. CASPER AND RESIDENTS MAKING ROUNDS AT THIS TIME.
[2018-10-11 08:04] LABS: HEMOGLOBIN 7.7 g/dL (12.0-16.0); RED BLOOD CELL COUNT(AUTO) 2.76 MIL/uL (4.20-5.40); WHITE BLOOD COUNT (AUTO) 11.6 K/uL (4.8-10.8)
[2018-10-11 08:05] LABS: HEMATOCRIT 23.8 % (36-48); MEAN CORPUSCULAR HEMOGLOBIN 28 pg (27-31); MEAN CORPUSCULAR VOLUME 86.4 fL (80-94); RED CELL DISTRIBUTION WIDTH 15.1 % (11.6-13.7)
[2018-10-11 08:08] LABS: EOSINOPHILS % (MANUAL) 1 % (0-4); LYMPHOCYTES % (MANUAL) 10 % (20-46); MONOCYTES % (MANUAL) 8 % (5-12)
[2018-10-11] MEDS: LACTOBACILLUS RHAMNOSUS GG 1 EACH CAP GT SCH (08:13)
[2018-10-11] MEDS: BACLOFEN 10 MG TAB PO SCH ×3 (08:14→17:13)
[2018-10-11] MEDS: MULTIVITAMIN/MINERALS 15 ML UDBTL GT SCH (08:14)
[2018-10-11] MEDS: CALCIUM CARB/VIT-D 500 MG/200 IU 1 TAB GT SCH (08:14)
[2018-10-11] MEDS: ZINC SULF 220 MG CAP GT SCH (08:14)
[2018-10-11] MEDS: FAMOTIDINE 20 MG TAB GT SCH ×2 (08:14→20:03)
[2018-10-11] MEDS: CITALOPRAM 20 MG TAB GT SCH (08:14)
[2018-10-11] MEDS: CHLORHEXIDINE GLUCONATE 0.12% 473 ML LIQ MM SCH (08:15)
[2018-10-11] MEDS: HYDROcodone/APAP 7.5/325 MG 1 TAB PO PRN ×2 (08:28→20:54)
--- NOTE | 2018-10-11 08:30 | NUR ---
PT C/O GENERALIZED PAIN MORE IN THE NECK. REPOSITIONED AND NON PHARMACOLOGICAL INTERVENTIONS PROVIDED BUT FLACC 4. NORCO ADMINISTERED ORDERED. WILL CONTINUE TO MONITOR.
--- NOTE | 2018-10-11 09:45 | NUR ---
APPLIED HEAT PAD TO THE RIGHT SHOULDER ORDERED.
[2018-10-11] MEDS ORDERED: MAG SULF 2000 MG/WATER PREMIX 100 ML IV SCH (10:00)
--- NOTE | 2018-10-11 10:10 | NUR ---
REPOSITIONED FOR COMFORT AND TO OFF LOAD.
[2018-10-11] MEDS ORDERED: POTASSIUM CHLORIDE 20% 40 MEQ/15 ML UDC GT SCH (10:15)
--- NOTE | 2018-10-11 10:35 | NUR ---
DR. NELSON IN TO SEE PT.
--- NOTE | 2018-10-11 10:39 | NUR ---
ECHO BEING PERFORMED AT BED SIDE.
[2018-10-11] MEDS ORDERED: PROBIOTIC SCREEN 1 EA MISC MC PRN ×2 (11:55→13:25)
--- NOTE | 2018-10-11 12:05 | NUR ---
REPOSITIONED FOR COMFORT AND TO OFF LOAD. PT REQUESTED THE HEAT PAD FROM THE SHOULDER TO BE REMOVED AND DONE REQUESTED.
[2018-10-11] MEDS: HYDROmorphone 2 MG TAB GT PRN (12:23)
--- NOTE | 2018-10-11 12:25 | NUR ---
DR. BENSON IN TO SEE PT.
[2018-10-11] MEDS: ONDANSETRON 4 MG/2 ML VIAL IM/IVP PRN (12:33)
--- NOTE | 2018-10-11 12:33 | NUR ---
PT C/O NAUSEA. RESIDUAL 10ML. HOB KEPT ELEVATED 30 DEGREES. ZOFRAN ADMINISTERED ORDERED.
--- NOTE | 2018-10-11 14:02 | NUR ---
REPOSITIONED FOR COMFORT AND OFF LOADED.
[2018-10-11] MEDS: VANCOMYCIN 1,000 MG in DEXTROSE 5% 250 ML IV SCH (15:04)
[2018-10-11] MEDS: ALBUTEROL SULFATE/IPRATROPIU 3 ML SOL IH PRN (15:15)
--- NOTE | 2018-10-11 16:33 | NUR ---
RECEIVED CULTURE RESULTS. HEALTH EDUCATION DIRECTOR+ FOR URINE AND ESBL+ SPUTUM. RESULTS REPORTED TO DR. MITCHELL. CONTACT ISOLATION PRECAUTIONS RECEIVED.
[2018-10-11] MEDS ORDERED: FERROUS SULFATE 325 MG TABEC PO SCH (17:00)
--- NOTE | 2018-10-11 17:55 | NUR ---
REPOSITIONED FOR COMFORT AND OFF LOAD. SUCTION VIA TRACH WITH MODERATE AMOUNT OF WHITE SPUTUM. CONTACT PRECAUTION CARRIED OUT WHILE CARING.
--- NOTE | 2018-10-11 17:58 | NUR ---
DR. HOWE MADE AWARE OF IRON ORDER UNABLE TO BE ADMINISTERED DUE TO ORDER READS ENTERIC COATED VIA PO. PT NPO AND G-TUBE FEEDING.
--- NOTE | 2018-10-11 19:08 | NUR ---
BED SIDE REPORT GIVEN TO NIGHT NURSE. PT VITAL SIGNS STABLE. ALL SAFETY PRECAUTIONS ARE IN PLACE.
--- NOTE | 2018-10-11 19:20 | NUR ---
RECEIVED PT FROM AM NURSE. PT AT BED AWAKE, WATCHING TV, PERRLA 3MM, A&O X2, PT NONVERBAL BUT MAKE NEEDS KNOWN BY MOUTHING OF WORDS. HEART RATE REGULAR, SR ON MONITOR, S1 S2 PRESENT, PULSES 2+ BILATERAL LOWER AND UPPER EXTREMITIES, CAP REFILL <3S, ABDOMEN SOFT, ROUND, NONDISTENDED, NONTENDER, COLOSTOMY APPLIANCE IN PLACE, DRAINING YELLOWISH BROWN SOFT STOOL, BOWEL SOUNDS ACTIVE IN ALL QUADRANTS, GTUBE IN PLACE RUNNING JEVITY 1.2 AT 70 ML/HR WATER FLUSH OF 100 ML Q6H, NO RESIDUAL NOTED, WIGGINS CATHETER IN PLACE, DRAINING YELLOW URINE, PT HAS BILATERAL UPPER EXTREMITIES CONTRACTION, GENERALIZED WEAKNESS, HEEL PROTECTORS IN PLACE AT BILATERAL LOWER EXTREMITIES, SKIN IS DRY, NONINTACT, DRESSINGS IN PLACE, DRY AND INTACT, RIGHT IJ CENTRAL LINE TRIPLE LUMEN, CURRENTLY RUNNING NS AT 100 ML/HR. RIGHT THUMB 18 GAUGE SALINE LOCK. HOB 30 DEGREES, SIDERAILS UP X2, BED AT LOWEST POSITION, SEIZURE PRECAUTION IN PLACE.
--- NOTE | 2018-10-11 21:00 | NUR ---
MEDICATIONS GIVEN. SUCTIONED PT AND PERFORMED VAP ORAL CARE, SUCTIONED MODERATE AMOUNT OF WHITE MUCOUS. PT TOLERATED PROCEDURE WELL.
[2018-10-11] MEDS: METOPROLOL 5 MG/5 ML VIAL IVP PRN (21:50)
--- NOTE | 2018-10-11 21:50 | NUR ---
PT HR ELEVATED 163. A.FIB ON MONITOR. ADMINISTERED PRN. LOPRESSOR 5MG IVP. SUCTIONED PT WITH MODERATE AMOUNT OF WHITE SPUTUM.
--- NOTE | 2018-10-11 22:20 | NUR ---
DR. CARRILLO AT BEDSIDE UPDATED MD ON PT. CONDITION. CALLED DR. LESLIE DUMONT AND UPDATED MD ON PT CONDITION. NEW ORDERS RECEIVED FOR AMIODARONE BOLUS IV, AND AMIODARONE PO. PT STILL AT A. FIB ON MONITOR
[2018-10-11] MEDS: MEROPENEM 1,000 MG in NACL 0.9% 100 ML IV SCH (22:23)
[2018-10-11] MEDS ORDERED: MEROPENEM 1,000 MG VIAL IV ONE (22:32)
[2018-10-11] MEDS ORDERED: AMIODARONE 200 MG TAB PO SCH (23:00)
[2018-10-11] MEDS ORDERED: AMIODARONE 150 MG in DEXTROSE 5% 100 ML IV SCH (23:00)
[2018-10-11] MEDS ORDERED: AMIODARONE 150 MG/3 ML VIAL IV ONE (23:02)
[2018-10-12] VITALS (21 sets, daily range): BP systolic 94–155; BP diastolic 58–93
--- NOTE | 2018-10-12 00:26 | NUR ---
PT AT BED EYES CLOSED, BREATHING REGULARLY, STILL A. FIB ON MONITOR.
--- NOTE | 2018-10-12 00:40 | NUR ---
RECEIVED BEDSIDE REPORT FROM PATIENT SERVICE ASSOCIATE RN JUSTO FOR CONTINUITY OF CARE. PATIENT IN BED WATCHING TV DENIES PAIN. A-FIB ON MONITOR, HR 133 BP 109/91 MAP 57 100% ON TRACH TO VENT, RR 16 EVEN AND UNLABORED. BED IN LOWEST POSITION WILL CONTINUE TO FREQUENTLY MONITOR.
[2018-10-12] MEDS ORDERED: DILTIAZEM 25 MG/5 ML VIAL IVP SCH (01:00)
--- NOTE | 2018-10-12 01:07 | NUR ---
GAVE CARDIZEM 10 MG FOR A-FIB AND HR IN THE 130'S WILL CONTINUE TO MONITOR V/S
[2018-10-12] MEDS: THERAHONEY GEL 42.5 GM TP SCH ×2 (01:08→12:06)
--- NOTE | 2018-10-12 02:15 | NUR ---
PATIENT HR IN THE 60'S NOTIFIED DR HOWE ORDERS FOR REPEAT EKG WILL CALL RT
[2018-10-12] MEDS ORDERED: MEROPENEM 1,000 MG VIAL IV ONE (04:24)
[2018-10-12] MEDS: HYDROcodone/APAP 7.5/325 MG 1 TAB PO PRN ×3 (04:50→21:47)
[2018-10-12] MEDS: MIDODRINE 5 MG TAB PO SCH ×3 (04:50→20:18)
[2018-10-12] MEDS: MEROPENEM 1,000 MG in NACL 0.9% 100 ML IV SCH ×3 (05:13→20:17)
--- NOTE | 2018-10-12 05:24 | NUR ---
MEDICATIONS GIVEN. VAP ORAL CARE PERFORMED. SUCTIONED SCANT WHITE MUCOUS. PT TOLERATED PROCEDURE WELL.
[2018-10-12 06:10] LABS: ANION GAP 11.6 (8-16); CARBON DIOXIDE 24.4 mmol/L (21-32); CREATININE 0.6 mg/dL (0.6-1.3)
[2018-10-12 06:16] LABS: MAGNESIUM 1.4 mg/dL (1.8-2.4); PHOSPHORUS 3.1 mg/dL (2.5-4.9)
[2018-10-12] MEDS: ALBUTEROL SULFATE/IPRATROPIU 3 ML SOL IH SCH ×3 (06:40→18:57)
--- NOTE | 2018-10-12 07:10 | NUR ---
RECEIVED PT FROM MEDICAL EQUIPMENT TECHNICIAN NURSEJUSTO. PT IS BED AAOX2, WATCHING TV, PERRL 3MM. NONVERBAL DUE TO VENT, BUT ABLE TO MAKE NEEDS KNOWN. HEART SOUND S1S2 PRESENT, SR ON MONITOR. PULSES 2+ BILATERAL LOWER AND UPPER EXTREMITIES, CAP REFILL <3S, ABDOMEN SOFT, ROUND, NONDISTENDED. COLOSTOMY BAG IN LEFT ABD. DRAINING BROWN LIQ STOOL, BOWEL SOUNDS ACTIVE IN ALL QUADRANTS. G TUBE ON RIGHT SIDE RUNNING JEVITY 1.2 AT 70 ML/HR WATER FLUSH OF 100 ML Q6H, RESIDUAL 10ML. WIGGINS CATHETER IN PLACE, DRAINING CLEAR YELLOW URINE WITH SEDIMENTS. PT HAS BILATERAL UPPER EXTREMITIES CONTRACTION, GENERALIZED WEAKNESS, BLE RIGIDITY. HEEL PROTECTORS IN PLACE. RIGHT IJ CENTRAL LINE TRIPLE LUMEN, CURRENTLY RUNNING NS AT 100 ML/HR. RIGHT THUMB 18 GAUGE SALINE LOCK. MULTIPLE PRESSURE WOUNDS ON FEET AND BUTTOCKS. DRESSING IN PLACE, CLEAN AND INTACT. HOB 35 DEGREES, SIDERAILS UP X2, BED AT LOWEST POSITION, FALL AND SEIZURE PRECAUTION IN PLACE.
--- NOTE | 2018-10-12 07:19 | NUR ---
CHANGE OF SHIFT REPORT GIVEN TO AM NURSE. PT AT STABLE CONDITION AT THIS TIME.
[2018-10-12] MEDS: FERROUS SULFATE 300 MG/5 ML UDC GT SCH (08:17)
[2018-10-12] MEDS: MULTIVITAMIN/MINERALS 15 ML UDBTL GT SCH (08:17)
[2018-10-12] MEDS: LACTOBACILLUS RHAMNOSUS GG 1 EACH CAP GT SCH (08:18)
[2018-10-12] MEDS: ZINC SULF 220 MG CAP GT SCH (08:18)
[2018-10-12] MEDS: CITALOPRAM 20 MG TAB GT SCH (08:18)
[2018-10-12] MEDS: BACLOFEN 10 MG TAB PO SCH ×3 (08:18→17:38)
[2018-10-12] MEDS: CALCIUM CARB/VIT-D 500 MG/200 IU 1 TAB GT SCH (08:19)
[2018-10-12] MEDS: FAMOTIDINE 20 MG TAB GT SCH ×2 (08:19→20:18)
[2018-10-12] MEDS: NACL 0.9% 1,000 ML IV SCH ×2 (08:19→17:38)
--- NOTE | 2018-10-12 08:30 | NUR ---
DR BECERRIL WAS HERE, STATED OK TO GIVE AMIODARONE EVEN HEART RATE IS 58. 200MG PO AMIODARONE WAS GIVEN.
[2018-10-12] MEDS: AMIODARONE 200 MG TAB PO SCH ×2 (08:34→20:18)
[2018-10-12 08:54] LABS: BASOPHILS # (AUTO) 0.1 K/uL (0.00-0.22); BASOPHILS % (AUTO) 0.5 % (0.0-2.0); EOSINOPHILS # (AUTO) 0.2 K/uL (0-0.4); EOSINOPHILS % (AUTO) 2.1 % (0.0-4.0); HEMATOCRIT 23.3 % (36-48); HEMOGLOBIN 7.5 g/dL (12.0-16.0); LYMPHOCYTES # (AUTO) 1.6 K/uL (2.5-16.5); LYMPHOCYTES % (AUTO) 15.6 % (20.5-51.1); MEAN CORPUSCULAR HEMOGLOBIN 28 pg (27-31); MEAN CORPUSCULAR HGB CONC 32 g/dL (33-37); MEAN CORPUSCULAR VOLUME 87.8 fL (80-94); MONOCYTES # (AUTO) 1.1 K/uL (0.8-1.0); MONOCYTES % (AUTO) 10.9 % (1.7-9.3); NEUTROPHILS # (AUTO) 7.4 K/uL (1.8-7.7); NEUTROPHILS % (AUTO) 70.9 % (42.2-75.2); PLATELET COUNT (AUTO) 292 K/uL (140-450); RED BLOOD CELL COUNT(AUTO) 2.65 MIL/uL (4.20-5.40); RED CELL DISTRIBUTION WIDTH 15.6 % (11.6-13.7); WHITE BLOOD COUNT (AUTO) 10.5 K/uL (4.8-10.8)
--- NOTE | 2018-10-12 11:00 | NUR ---
DR BENSON CAME AND EVALUATED PT. ORDERED 4G MG RIDER. STATED OK TO BE DOWNGRADED FROM HIS STANDPOINT.
[2018-10-12] MEDS: MAG SULF 2000 MG/WATER PREMIX 100 ML IV SCH ×2 (12:06→14:26)
[2018-10-12] MEDS: Z-GUARD PASTE TP PRN (12:07)
[2018-10-12] MEDS: HYDRAGUARD CREAM TP PRN (12:07)
[2018-10-12] MEDS: HYDROmorphone 2 MG TAB GT PRN ×2 (12:20→17:38)
--- NOTE | 2018-10-12 12:30 | NUR ---
DRESSING TO SACRAL WOUND, AND BUTTOCKS WOUND HAS BEEN CHANGED. WOUNDS WERE PACKED WITH THERAHONEY, ADAPTIC AND GAUZE, COVERED WITH OPTIFOAM.
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
--- NOTE | 2018-10-12 15:41 | NUR ---
10/12/18 RD FOLLOW UP COMPLETED PLEASE REFER TO NUTRITION ASSESSMENT UNDER CARE ACTIVITY FOR ESTIMATED NUTRITIONAL NEEDS. 1. CONTINUE JEVITY 1.2 TO 70 ML/HR WITH FREE WATER FLUSH OF 100 ML Q6H -THIS PROVIDES 2160 KCAL, 92G PROTEIN AND 1356ML FLUID. THIS MEETS 100% OF CALORIC AND PROTEIN NEEDS. 2. RECOMMEND ADDING VITAMIN C 500MG BID FOR WOUND HEALING 3. RD WILL F/U 2-3 DAYS; HIGH RISK VANNA DEVINE RD
--- NOTE | 2018-10-12 16:00 | NUR ---
RIGHT BIG TOE DTI, PIC TAKEN.
--- NOTE | 2018-10-12 16:30 | NUR ---
PT WATCHING TV, NO S/S OF ACUTE DISTRESS.
--- NOTE | 2018-10-12 19:08 | NUR ---
Received pt stable on vent support at documented settings, suctioned small amount of thick green white secretions, hhn tx given, tolerated well, no resp distress or SOB noted at this time, Shiley 6 trach secured/patent/midline, alarms set and audible, ambu bag at bedside, vent plugged into red outlet, cont pulse ox on, will cont to monitor.
--- NOTE | 2018-10-12 19:20 | NUR ---
RECEIVED BEDSIDE REPORT FROM DAY SHIFT NURSE RAJEEV RN, PT STABLE, NO DISTRESS NOTED, CENTRAL LINE TO R IJ TRIPLE LUMENT PATENT, INTACT, INFUSING WELL, AND IV TO R THUMB 18G, PATENT INTACT, PT ON TRACH TO VENT, NO SOB NOTED, G TUBE IN PLACE WITH TUBE FEEDINGS, WIGGINS CATH INTACT DRAINING YELLOW URINE, COLOSTOMY BAG IN PLACE DRAINING WELL, DRESSINGS INTACT, PT ABLE TO MOUTH NEEDS, INITIAL ASSESSMENT DONE, ALL SAFETY PRECAUTION MET, CALL LIGHT WITHIN REACH, WILL CONTINUE TO MONITOR.
--- NOTE | 2018-10-12 20:00 | NUR ---
RECEIVED REPORT FROM LAB ULCER CULTURE IS POSITIVE FOR MRSA, CALLED DR. SHYAM DR. STATED UNDERSTANDING. NO CHANGES IN ORDERS AT THIS MOMENT.
--- NOTE | 2018-10-12 20:26 | NUR ---
DUE MEDICATION ADMINISTERED, PT TOLERATED WELL, NO DISTRESS NOTED, CALL LIGHT WITHIN REACH, WILL CONTINUE TO MONITOR.
[2018-10-12] MEDS ORDERED: VANCOMYCIN PER PHARMACY MC PRN (20:55)
--- NOTE | 2018-10-12 20:55 | NUR ---
DR. MICHELLE AT BEDSIDE, NOTIFIED REGARDING POSITIVE CULTURE FOR WOUNDS, STATED UNDERSTANDING. TO ORDER VANCOMYCIN 1G NOW AND FOR PHARMACY TO FOLLOW UP. WILL CONTINUE WITH ORDERS.
[2018-10-12] MEDS ORDERED: VANCOMYCIN 1,000 MG VIAL ONE (21:14)
[2018-10-12] MEDS ORDERED: VANCOMYCIN 1GM/DEXT 5% PREMIX 200 ML IV SCH (21:15)
--- NOTE | 2018-10-12 21:47 | NUR ---
PT C/O PAIN TO THE SHOULDER, PAIN MEDICATION PER DR ORDER ADMINISTERED, PT TOLERATED WELL, NO DISTRESS NOTED, CALL LIGHT WITHIN REACH, WILL CONTINUE TO MONITOR.
[2018-10-13] VITALS (10 sets, daily range): BP systolic 100–140; BP diastolic 55–86
--- NOTE | 2018-10-13 00:01 | NUR ---
CHECKED PT V/S, PT RESTING, NO DISTRESS NOTED, CALL LIGHT WITHIN REACH, WILL CONTINUE TO MONITOR.
[2018-10-13] MEDS: ALBUTEROL SULFATE/IPRATROPIU 3 ML SOL IH PRN (01:05)
[2018-10-13] MEDS: THERAHONEY GEL 42.5 GM TP SCH ×2 (01:18→13:45)
[2018-10-13] MEDS: HYDROcodone/APAP 7.5/325 MG 1 TAB PO PRN ×2 (02:31→08:39)
--- NOTE | 2018-10-13 02:31 | NUR ---
PT C/O PAIN TO THE SHOULDER, PAIN MEDICATION ADMINISTERED PER DR ORDER, PT RESTING, NO DISTRESS NOTED, CALL LIGHT WITHIN REACH, WILL CONTINUE TO MONITOR.
[2018-10-13] MEDS: NACL 0.9% 1,000 ML IV SCH ×3 (04:02→20:37)
[2018-10-13] MEDS: MIDODRINE 5 MG TAB PO SCH ×3 (04:18→20:41)
[2018-10-13] MEDS: MEROPENEM 1,000 MG in NACL 0.9% 100 ML IV SCH ×3 (04:18→20:38)
--- NOTE | 2018-10-13 04:18 | NUR ---
DUE MEDICATION ADMINISTERED, PT TOLERATED WELL, NO DISTRESS NOTED, CALL LIGHT WITHIN REACH, WILL CONTINUE TO MONITOR.
--- NOTE | 2018-10-13 05:38 | NUR ---
PT RESTING, NO DISTRESS NOTED, CALL LIGHT WITHIN REACH, WILL CONTINUE TO MONITOR.
[2018-10-13 06:35] LABS: HEMATOCRIT 24.1 % (36-48); HEMOGLOBIN 7.9 g/dL (12.0-16.0); MEAN CORPUSCULAR HEMOGLOBIN 29 pg (27-31); MEAN CORPUSCULAR HGB CONC 33 g/dL (33-37); MEAN CORPUSCULAR VOLUME 87.4 fL (80-94); PLATELET COUNT (AUTO) 293 K/uL (140-450); RED BLOOD CELL COUNT(AUTO) 2.75 MIL/uL (4.20-5.40); RED CELL DISTRIBUTION WIDTH 15.7 % (11.6-13.7); WHITE BLOOD COUNT (AUTO) 10.7 K/uL (4.8-10.8)
[2018-10-13 06:42] LABS: CARBON DIOXIDE 24.1 mmol/L (21-32); CREATININE 0.6 mg/dL (0.6-1.3); POTASSIUM 4.1 mmol/L (3.5-5.1)
[2018-10-13 06:57] LABS: MAGNESIUM 1.5 mg/dL (1.8-2.4); PHOSPHORUS 2.4 mg/dL (2.5-4.9)
--- NOTE | 2018-10-13 07:00 | NUR ---
TRANSFERRED PT TO TELE BED 108B, PT TOLERATED WELL, NO DISTRESS NOTED.
--- NOTE | 2018-10-13 07:18 | NUR ---
Pt trasport from ICU 7 to 108B. Pt awake and alert. Pt brendon transfer well. pt placed back on current vent setting upon arrival to 108. Pt shows no sighs of SOB or rest distress at this time. Will continue to monitor pt throughout shift. RN aware.
--- NOTE | 2018-10-13 07:20 | NUR ---
ENDORSED PT TO DAY SHIFT NURSE JAYMIE CARRION, PT STABLE, NO DISTRESS NOTED, CALL LIGHT WITHIN REACH, WILL CONTINUE TO MONITOR.
--- NOTE | 2018-10-13 07:23 | NUR ---
RECEIVED PT FROM SAP PI ARCHITECT NURSE, FREDI, PT IS AWAKE, ON CONTACT ISOLATION, ON A TRACH TO VENT, WITH CENTRAL LINE, RT IJ TRIPLE LUMEN WITH IVF NS AT 100ML/HR,IV LINE ON THE RT THUMB ON SALINE LOCK, WIGGINS CATHETER AND COLOSTOMY WERE IN PLACE, PT ON CONTINUOUS FEEDING OF JEVITY 1.2 VIA G-TUBE AT 70ML/HR, WITH WATER FLUSHING OF 100ML/HR Q6H, BILATERAL SACRAL PRESSURE ULCER IN PLACE, WITH BILATERAL FOOT BOOTS IN PLACE, RT HEEL REINFORCED WITH OPTIFOAM DRESSING, NO SIGN OF DISTRESS NOTED AND WILL MONITOR PT.
[2018-10-13 08:03] LABS: LYMPHOCYTES % (MANUAL) 10 % (20-46); MONOCYTES % (MANUAL) 10 % (5-12)
[2018-10-13 08:05] LABS: EOSINOPHILS % (MANUAL) 4 % (0-4)
[2018-10-13] MEDS: ALBUTEROL SULFATE/IPRATROPIU 3 ML SOL IH SCH ×3 (08:34→19:02)
[2018-10-13] MEDS: CALCIUM CARB/VIT-D 500 MG/200 IU 1 TAB GT SCH (08:35)
[2018-10-13] MEDS: AMIODARONE 200 MG TAB PO SCH ×2 (08:36→20:41)
[2018-10-13] MEDS: CITALOPRAM 20 MG TAB GT SCH (08:36)
[2018-10-13] MEDS: FAMOTIDINE 20 MG TAB GT SCH ×2 (08:36→20:40)
[2018-10-13] MEDS: BACLOFEN 10 MG TAB PO SCH ×3 (08:37→17:21)
[2018-10-13] MEDS: LACTOBACILLUS RHAMNOSUS GG 1 EACH CAP GT SCH (08:38)
[2018-10-13] MEDS: ZINC SULF 220 MG CAP GT SCH (08:38)
[2018-10-13] MEDS: FERROUS SULFATE 300 MG/5 ML UDC GT SCH (08:39)
--- NOTE | 2018-10-13 08:44 | NUR ---
PT IS AWAKE AND LYING ON THE BED, MEDICATIONS WERE GIVEN TO PT VIA G-TUBE, 5ML RESIDUAL NOTED, TOLERATED IT. WILL MONITOR PT.
[2018-10-13] MEDS ORDERED: MAG SULF 2000 MG/WATER PREMIX 100 ML IV ONE (08:50)
[2018-10-13] MEDS ORDERED: SODIUM PHOS / POTASSIUM PHOS 1 PKT PDR PO SCH (09:00)
[2018-10-13] MEDS: MULTIVITAMIN/MINERALS 15 ML UDBTL GT SCH (09:05)
[2018-10-13] MEDS: ASCORBIC ACID 500 MG/5 ML ORASYR GT SCH (09:06)
--- NOTE | 2018-10-13 09:16 | NUR ---
MAGNESIUM SULFATE FIRST BAG WAS STARTED TO PT NOW.
[2018-10-13] MEDS: MAGNESIUM SULFATE 1GM in DEXTROSE 5% 100 ML PREMIX IV SCH ×4 (09:25→13:44)
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
--- NOTE | 2018-10-13 10:27 | NUR ---
PER REJI PATIENT AND PATIENT'S FAMILY VOICED OUT CONCERNS REGARDING NOT WANTING TO GO BACK TO [facility]. CONTACTED KIMBERLY Shane (MACHINE CAPTAIN) FROM [facility] AT [phone], INFORMED HER OF PATIENT AND PATIENT'S FAMILY'S CONCERN. SHE STATED SHE WILL FAX ME THE LIST OF ALL CONTRACTED FACILITIES. WILL FOLLOW UP.
--- NOTE | 2018-10-13 10:35 | NUR ---
STARTED THE SECOND BAG OF MAGNESIUM SULFATE TO PT NOW.
--- NOTE | 2018-10-13 12:40 | NUR ---
PT IS AWAKE, ON A TRACH TO VENT, MEDICATIONS WERE GIVEN VIA IVPB AND G-TUBE WITH 5ML RESIDUAL, PT TOLERATED IT. WILL MONITOR PT.
--- NOTE | 2018-10-13 12:59 | NUR ---
RT ON THE BEDSIDE NOW GIVING BREATHING TREATMENT.
--- NOTE | 2018-10-13 13:04 | NUR ---
REJI contacted Shweta [phone]. REJI informed Shweta that JIM has been contacting contracted SNFs for possible halfway placement for patient. REJI discussed with Shweta that if no SNF is found, patient would return to [facility]. Shweta was adamant that she would not like patient to return to [facility]. REJI/JIM will follow up. Addendum: 10/14/18 at 0916 by Gabriel AGUILAR REJI also informed Shweta that SNFs are able to request clinical information from [facility]. Shweta verbalized understanding.
--- NOTE | 2018-10-13 13:10 | NUR ---
[employer] Note: I called and spoke with Sherry from [facility] , I informed her patient's daughter Shweta requested us to assist her with finding another half-way facility for patient. I explained to Sherry
--- NOTE | 2018-10-13 13:15 | NUR ---
Rn Medical Inpatient Services Note: I called and spoke with Sherry from [facility] , I informed her patient's daughter Shweta requested us to assist her with finding another custodial facility for patient. I explained to Sherry if we cannot find a custodial facility for patient, plan will be for patient to return to [facility] upon discharge. Sherry stated they will accept patient if they have a bed available. I asked Sherry for how long patient has been residing at their facility, she stated approximately 2 months. Rn Medical Inpatient Services and/or Hadoop Java Developer will follow up as needed.
--- NOTE | 2018-10-13 13:17 | NUR ---
RECEIVED CONTRACTED FACILITIES LIST FROM [facility]. [facility] - [address] [place] [address] -[phone] [facility] - [address] [place] [address] - [phone] [facility] - [address] [place] [address] - [phone] [facility] - [address] [place] [address] - [phone] [facility] - [address] [place] [address] - [phone] [facility] - [address] [place] [address] - [phone] PER JAYSON OF [facility], THEY DO NOT ACCEPT TRACH PATIENTS. CONTACTED [facility] AT [phone], NO ANSWER. LEFT MESSAGE CONTACTED [facility] AT [phone], ABLE TO SPEAK TO DAWIT (ADMISSIONS). PER HER NO ISOLATION BED AT THIS TIME. PROVIDED ME WITH FAX NUMBER [phone], MELONY BELL (MANUFACTURING ASSEMBLER). CONTACTED [facility] AT [phone], LEFT MESSAGE TO [facility] (ADMISSIONS). CONTACTED [facility] AT [phone], ABLE TO SPEAK TO KAMRAN. SHE STATED THEY DO NOT HAVE ANY ISOLATION BEDS AT THIS TIME. PROVIDED ME WITH THEIR SISTER [employer] [facility] AT [phone], CONTACTED THE PROVIDED NUMBER, NO ANSWER. LEFT MESSAGE TO JOSE BUSTILLOS. CONTACTED [facility], NO ANSWER. LEFT MESSAGE.
[2018-10-13 13:26] LABS: FERRITIN 247 ng/mL (15-150)
--- NOTE | 2018-10-13 13:44 | NUR ---
PT IS AWAKE AND FOURTH BAG OF MAGNESIUM SULFATE WAS STARTED TO PT NOW. WILL MONITOR PT.
[2018-10-13] MEDS: GAUZE TP SCH (13:45)
--- NOTE | 2018-10-13 14:38 | NUR ---
RECEIVED A CALL FROM [facility], SHE STATED THAT THEY DO NOT DO TRACH TO VENT.
--- NOTE | 2018-10-13 15:00 | NUR ---
DR. MITCHELL ORDERED THE FEEDING TO BE STOPPED BECAUSE AND KUB WILL BE ORDERED FOR THE PT.
--- NOTE | 2018-10-13 17:21 | NUR ---
PT IS AWAKE AND MEDICATION WAS GIVEN VIA G-TUBE AND RESIDUAL IS 3ML, PT TOLERATED IT. WILL MONITOR PT.
[2018-10-13] MEDS: ONDANSETRON 4 MG/2 ML VIAL IM/IVP PRN (17:24)
--- NOTE | 2018-10-13 17:34 | NUR ---
PT IS AWAKE AND C/O FEELING OF NAUSEA AND ZOFRAN WAS GIVEN IV PUSH. WILL MONITOR PT.
--- NOTE | 2018-10-13 19:06 | NUR ---
RECEIVED PT ON THE SAME VENT SETTINGS, PT ALERT , AWAKE, MED NEB INLINE, SX SMALL CLOUDY SECRETION, NO DISTRESS NOTED
--- NOTE | 2018-10-13 19:10 | NUR ---
ENDORSED PT TO ROAST MASTER NURSEMARLENE FOR CONTINUITY OF CARE.
--- NOTE | 2018-10-13 19:11 | NUR ---
RECEIVED PT FROM DAY RN. PT IS AWAKE APHASIC. ABLE TO MAKE NEEDS KNOWN BY LIP SIGN. ON CONTACT ISOLATION, PT IS ON A TRACH TO VENT: VT 450 PEEP 5 RR 14 SAT 97% RR 20. WITH CENTRAL LINE, RT IJ TRIPLE LUMEN WITH IVF NS AT 100ML/HR,IV LINE ON THE RT THUMB ON SALINE LOCK, WIGGINS CATHETER DRAINING YELLOW URINE AND COLOSTOMY WERE IN PLACE, PT WITH ORDER FOR CONTINUOUS FEEDING OF JEVITY 1.2 VIA G-TUBE AT 70ML/HR, WITH WATER FLUSHING OF 100ML/HR Q6H, FEEDING WERE STOPPED TODAY AT 1500 PER DAY RN. WILL F/U. HOB ELEVATED. BILATERAL SACRAL PRESSURE ULCER, DRESSING IS C/D/I. WITH BILATERAL FOOT BOOTS IN PLACE, RT HEEL REINFORCED WITH OPTIFOAM DRESSING, RT IS AT BEDSIDE GIVING PT TREATMENT AND SUCTIONING. NO SIGN OF DISTRESS NOTED WILL ROUND FREQUENTLY. .
--- NOTE | 2018-10-13 20:38 | NUR ---
VITAL SIGNS ARE WITHIN NORMAL LIMITS. SRI MEDICATIONS CRUSHED AND GIVEN VIA G-TUBE. PT WITH <5 RESIDUAL NOTED. CHANGED COLOSTOMY BAG. NEW BAG OF JEVITY NOW INFUSING. NEW BAG OF IVF INFUSING VIA RT IJ. ORAL CARE PROVIDED. PT CLEANED AND REPOSITION FOR COMFORT. ALL NEEDS MET AT THIS TIME. PT TOLERATED WELL. NO S/S OF DISTRESS. CALL LIGHT IS WITHIN REACH. PT ABLE TO PRESS CALL LIGHT WITH ELBOW. HOB ELEVATED. WILL CONTINUE TO MONITOR.
[2018-10-13] MEDS: VANCOMYCIN 1,000 MG in DEXTROSE 5% 250 ML IV SCH (21:43)
--- NOTE | 2018-10-13 21:43 | NUR ---
VANCO NOW INFUSING PER ORDERS. ALL SAFETY MEASURES ARE IN PLACE. WILL CONTINUE TO MONITOR.
--- NOTE | 2018-10-13 22:30 | NUR ---
PT IS RESTING COMFORTABLY IN BED WATCHING TELEVISION. CHEST RISE AND FALL. TRACH TO VENT. VENT SETTINGS REMAIN THE SAME. NO S/S OF DISTRESS. CALL LIGHT IS WITHIN REACH. HOB ELEVATED. SAFETY MEASURES ARE IN PLACE. WILL CONTINUE TO MONITOR.
[2018-10-14] VITALS: BP 131/72
--- NOTE | 2018-10-14 | NUR ---
VITAL SIGNS ARE WITHIN NORMAL LIMITS. SUCTION SMALL AMOUNT OF WHITE SECRETION. PT TOLERATED WELL. NO S/S OF DISTRESS. WILL CONTINUE TO MONITOR.
--- NOTE | 2018-10-14 01:00 | NUR ---
ORAL CARE GIVEN. PT TOLERATED WELL. PT REPOSITION FOR COMFORT. ALL NEEDS MET AT THIS TIME. WILL CONTINUE TO MONITOR.
[2018-10-14] MEDS: THERAHONEY GEL 42.5 GM TP SCH ×2 (01:15→13:07)
--- NOTE | 2018-10-14 03:00 | NUR ---
PATIENT IS WATCHING TELEVISION COMFORTABLY IN BED. NO S/S OF DISTRESS. ALL NEEDS MET AT THIS TIME. WILL CONTINUE TO MONITOR.
[2018-10-14 04:00] VITALS: BP 134/72
[2018-10-14] MEDS: MEROPENEM 1,000 MG in NACL 0.9% 100 ML IV SCH ×3 (04:08→21:42)
[2018-10-14] MEDS: MIDODRINE 5 MG TAB PO SCH ×3 (04:08→21:20)
--- NOTE | 2018-10-14 04:30 | NUR ---
RT IS AT BEDSIDE. VITAL SIGNS ARE WITHIN NORMAL LIMITS. SRI MEDICATIONS GIVEN PT WITH 15CC RESIDUAL. REMOVED APPROX 150CC OF AIR. ALL SAFETY MEASURES ARE IN PLACE. WILL CONTINUE TO MONITOR.
--- NOTE | 2018-10-14 05:07 | NUR ---
PT WAS AWAKE ALL NIGHT, CHANGED HME, LAUREANO, SX SMALL CLEAR SECRETION, VITALS STABLE, TRACH CARE DONE.
--- NOTE | 2018-10-14 06:00 | NUR ---
PT REQUESTING TO BE SUCTION. SUCTION SMALL AMOUNT OF THICK WHITE SECRETIONS. SUCTION MOUTH WELL. PT TOLERATED WELL. EMPTIED WIGGINS CATH AND OSTOMY BAG. SAFETY MEASURES ARE IN PLACE. WILL CONTINUE TO MONITOR.
[2018-10-14 06:42] LABS: BASOPHILS % (AUTO) 0.3 % (0.0-2.0); EOSINOPHILS # (AUTO) 0.8 K/uL (0-0.4); EOSINOPHILS % (AUTO) 5.5 % (0.0-4.0); HEMATOCRIT 25.4 % (36-48); HEMOGLOBIN 8.1 g/dL (12.0-16.0); LYMPHOCYTES # (AUTO) 2.2 K/uL (2.5-16.5); LYMPHOCYTES % (AUTO) 14.6 % (20.5-51.1); MEAN CORPUSCULAR HEMOGLOBIN 28 pg (27-31); MEAN CORPUSCULAR HGB CONC 32 g/dL (33-37); MEAN CORPUSCULAR VOLUME 86.9 fL (80-94); MONOCYTES # (AUTO) 1.5 K/uL (0.8-1.0); MONOCYTES % (AUTO) 9.8 % (1.7-9.3); NEUTROPHILS # (AUTO) 10.5 K/uL (1.8-7.7); NEUTROPHILS % (AUTO) 69.8 % (42.2-75.2); PLATELET COUNT (AUTO) 316 K/uL (140-450); RED BLOOD CELL COUNT(AUTO) 2.92 MIL/uL (4.20-5.40); RED CELL DISTRIBUTION WIDTH 15.8 % (11.6-13.7); WHITE BLOOD COUNT (AUTO) 15.1 K/uL (4.8-10.8)
[2018-10-14] MEDS ORDERED: HYDROcodone/APAP 5/325 MG 1 TAB TAB PO SCH (06:45)
[2018-10-14 06:57] LABS: ANION GAP 12.2 (8-16); CARBON DIOXIDE 25.8 mmol/L (21-32); CREATININE 0.6 mg/dL (0.6-1.3)
[2018-10-14] MEDS: ALBUTEROL SULFATE/IPRATROPIU 3 ML SOL IH SCH ×3 (06:57→19:11)
[2018-10-14 07:02] LABS: MAGNESIUM 1.4 mg/dL (1.8-2.4); PHOSPHORUS 2.4 mg/dL (2.5-4.9)
--- NOTE | 2018-10-14 07:15 | NUR ---
GAVE BEDSIDE REPORT TO DAY SHIFT RN. PT ENDORSED IN STABLE CONDITION.
--- NOTE | 2018-10-14 07:18 | NUR ---
RECEIVED PT FROM REGISTERED DENTAL HYGIENIST NURSEMARLENE, PT IS AWAKE AND LYING ON THE BED WITH RT ON THE BEDSIDE, PT HAS A RT IJ TRIPLE LUMEN WITH NS INFUSING AT 100ML/HR, G-TUBE IN PLACE WITH CONTINUOUS FEEDING OF JEVITY 1.2 AT 70ML/HR WITH WATER FLUSHING OF 100ML Q6H, COLOSTOMY BAG IN PLACE, WIGGINS CATHETER INTACT, PT HAS A PERIPHERAL LINE ON THE RT THUMB G. 18 ON SALINE LOCK, PT IS ON A TRACH TO VENT AND NO SIGN OF DISTRESS NOTED. WILL CONTINUE TO MONITOR PT.
[2018-10-14 08:00] VITALS: BP 139/76
[2018-10-14] MEDS ORDERED: MAG SULF 2000 MG/WATER PREMIX 100 ML IV ONE (09:00)
[2018-10-14] MEDS ORDERED: SODIUM PHOS / POTASSIUM PHOS 1 PKT PDR PO SCH (09:15)
[2018-10-14] MEDS ORDERED: FUROSEMIDE 20 MG/2 ML VIAL IVP SCH (09:15)
[2018-10-14] MEDS: CITALOPRAM 20 MG TAB GT SCH (09:21)
[2018-10-14] MEDS: HYDROcodone/APAP 5/325 MG 1 TAB TAB PO SCH ×2 (09:22→17:09)
[2018-10-14] MEDS: FERROUS SULFATE 300 MG/5 ML UDC GT SCH (09:22)
[2018-10-14] MEDS: ASCORBIC ACID 500 MG/5 ML ORASYR GT SCH (09:22)
[2018-10-14] MEDS: AMIODARONE 200 MG TAB PO SCH ×2 (09:23→21:20)
[2018-10-14] MEDS: CALCIUM CARB/VIT-D 500 MG/200 IU 1 TAB GT SCH (09:23)
[2018-10-14] MEDS: LACTOBACILLUS RHAMNOSUS GG 1 EACH CAP GT SCH (09:23)
[2018-10-14] MEDS: FAMOTIDINE 20 MG TAB GT SCH ×2 (09:23→21:19)
[2018-10-14] MEDS: MULTIVITAMIN/MINERALS 15 ML UDBTL GT SCH (09:23)
[2018-10-14] MEDS: ZINC SULF 220 MG CAP GT SCH (09:23)
[2018-10-14] MEDS: BACLOFEN 10 MG TAB PO SCH ×4 (09:24→21:20)
[2018-10-14] MEDS ORDERED: MAGNESIUM SULFATE 4GM in STERILE WATER 100 ML PREMIX IV SCH (09:30)
--- NOTE | 2018-10-14 09:30 | NUR ---
ADMINISTERED MEDICATIONS TO PATIENT THROUGH GTUBE, PATIENT TOLERATED WELL, NO SIGNS OF DISTRESS, CHANGED DRESSING ON R HEEL, DRAINED WIGGINS CATHETER, RT GAVE PATIENT BREATHING TREATMENT AND SUCTIONED, PATIENT IS AWAKE AND WATCHING TV, WILL CONTINUE TO MONITOR.
[2018-10-14] MEDS: NACL 0.9% 1,000 ML IV SCH ×2 (09:39→19:55)
[2018-10-14] MEDS: ALBUTEROL SULFATE/IPRATROPIU 3 ML SOL IH PRN (09:40)
[2018-10-14 12:00] VITALS: BP 110/57
[2018-10-14] MEDS: GAUZE TP SCH (13:07)
--- NOTE | 2018-10-14 13:15 | NUR ---
PT WAS GIVEN MEDICATION VIA G-TUBE, NO RESIDUAL NOTED, PT TOLERATED IT. WILL MONITOR PT, RT ON THE BEDSIDE GIVEING BREATHING TREATMENT.
--- NOTE | 2018-10-14 13:41 | NUR ---
Front Desk Agent Note: I received a call from patient's daughter Shweta Robles , she stated she was upset because she received a list of [facility] facilities instead of subacute facilities. She told me she spoke with someone from patient's health insurance and was told we (case management/social director dept) provide her with a list of subacute facilities. I explained to her we have to obtain a list of subacute facilities that are contracted with patient's health insurance and we will contact casey saw operator from health insurance to obtain this list. She verbalized understanding. I told her we will contact those subacute facilities and let her know if any of them can accept patient. She told me she understood. I called casey saw operator Stephanie from [facility] , no answer, left message requesting a list of subacute facilities, included our fax number and my contact information. Front Desk Agent and/or Rn Liaison will follow up as needed.
--- NOTE | 2018-10-14 14:24 | NUR ---
Discharge Planning Note: REJI contacted: Micah - [phone] - REJI left voicemail. [facility] - [phone] - REJI spoke to Pablo. Facility does not have sub-acute unit. [facility] - [phone] - REJI left voicemail.
--- NOTE | 2018-10-14 15:42 | NUR ---
REJI faxed clinicals to the following sub acute facilities: [facility]: P# [phone] / F# [phone] [facility]: P# [phone] / F# [phone] [facility]: P# [phone] / F# [phone]
[2018-10-14 16:00] VITALS: BP 139/61
--- NOTE | 2018-10-14 19:09 | NUR ---
ENDORSED PATIENT TO PATIENT ACCOUNTING REPRESENTATIVE NURSE WITH CONTINUING OF CARE.
--- NOTE | 2018-10-14 19:27 | NUR ---
RECEIVED PATIENT TRACH SHILEY 6 TO MECHANICAL VENTILATOR. VENT CHECK DONE. VENT ALARMS ON AND AUDIBLE. VENT PLUGGED INTO CORRECT OUTLET. AMBU BAG AT BEDSIDE. CONTINUOUS PULSE OX ON AND FUNCTIONING; ALARMS ON AND AUDIBLE. AIRWAY SECURE AND PATENT. SUCTIONED SMALL AMOUNT OF THICK, WHITE/THIN, CLEAR SECRETIONS. SCHEDULED BREATHING TREATMENT ADMINISTERED. TOLERATED TX WELL WITHOUT ADVERSE SIDE EFFECTS. ORALLY SUCTIONED SMALL AMOUNT OF THIN, CLEAR SECRETIONS. NO ACUTE RESPIRATORY DISTRESS NOTED AT THIS TIME. WILL CONTINUE TO MONITOR.
[2018-10-14 20:00] VITALS: BP 106/55
--- NOTE | 2018-10-14 20:00 | NUR ---
RECEIVED ENDORSEMENT FORM AM SHIFT ASSIGNED NURSE AT BEDSIDE FOR CONTINUITY OF CARE, PT IN STABLE CONDITION.
--- NOTE | 2018-10-14 20:00 | NUR ---
BLOOD DRAW COLLECTED BY RN AT BEDSIDE FOR VANCOMYCIN TROUGH.
--- NOTE | 2018-10-14 20:45 | NUR ---
CNAS TURNED AND REPOSITIONED PT FOR COMFORT. ALL CONTACT PRECAUTIONS IN PLACE.
[2018-10-14] MEDS: LORazepam 2 MG/ML VIAL IM/IVP PRN (21:11)
[2018-10-14] MEDS: ONDANSETRON 4 MG/2 ML VIAL IM/IVP PRN (21:14)
--- NOTE | 2018-10-14 21:30 | NUR ---
PT IN BED GIVEN ALL SCHEDULED MEDS OF PEPCID, AMIODARONE, BACLOFEN, MIDODRINE, AND HEPARIN MERREM IV ABT HUNG WELL. EDUCATION FOR MEDICATION PROVIDED. PT SUCTION X2 REQUESTED V/S FOLLOWS T 98.5 P 71 R 18 B/P 106/55 02 96% TRACH TO VENT WITH ALL CURRENT VENT SETTINGS ALL CONTACT AND FALL PRECAUTIONS IN PLACE.
--- NOTE | 2018-10-14 22:00 | NUR ---
VANCOMYCIN HUNG AND IS RUNNING AT 165MLS/HR ORDERED. PT SLEEPING POSITIVE EFFECT OF ATIVAN AND ZOFRAN.
[2018-10-14] MEDS: VANCOMYCIN 1,000 MG in DEXTROSE 5% 250 ML IV SCH (22:33)
[2018-10-15] VITALS: BP 114/65
--- NOTE | 2018-10-15 00:35 | NUR ---
PT IN BED SLEEPING WITH EYES CLOSED BUT AROUSABLE TO NAME AND LIGHT TOUCH. PT RECEIVED SCHEDULE NORCO. PT DECLINED TO REPOSITION. SHE DID RECEIVED ORDERED NORCO. TUBE FEEDING TOLERATED WELL. R IJ SITE INTACT AND RUNNING NS ORDERED. PT REMAINS ON A WOUND BED AND RESPIRATIONS ARE EVEN AND UNLABORED WITH ALL CURRENT VENT SETTINGS. V/S FOLLOWS T 97.5 P 66 R 18 B/P 114/65 02 98% WITH ALL CURRENT VENT SETTINGS. 1100 DRAINED FROM URINARY BAG. COLOSTOMY IS INTACT AND DRAINING BROWN LIQUID FECES. HEEL BOOTS ON AND ALL FALLS AND CONTACT PRECAUTIONS IN PLACE.
[2018-10-15] MEDS: THERAHONEY GEL 42.5 GM TP SCH ×2 (01:00→12:30)
--- NOTE | 2018-10-15 02:00 | NUR ---
PT IN BED SLEEPING EYES CLOSED NO S/S OF PAIN OR DISTRESS NOTED. ALL FALLS AND CONTACT PRECAUTIONS IN PLACE.
[2018-10-15 04:00] VITALS: BP 80/50
--- NOTE | 2018-10-15 04:30 | NUR ---
PT TURNED, CHANGED AND REPOSITIONED ON WOUND BED. V/S FOLLOWS T 97.5 P 58 R 14 B/P 80/50 02 98% WITH ALL VENT SETTINGS.
--- NOTE | 2018-10-15 05:10 | NUR ---
PT GIVEN ORDERED MIDODRINE FOR DECREASED B/P LAST B/P WAS 80/50. PT ALSO GIVEN ORDERED NORCO AND IV ABT MERREM. PT MADE COMFORTABLE AND ALL REQUESTED NEEDS ATTENDED. ALL FALLS AND CONTACT PRECAUTIONS IN PLACE.
[2018-10-15] MEDS: MIDODRINE 5 MG TAB PO SCH ×3 (05:24→21:30)
[2018-10-15] MEDS: HYDROcodone/APAP 5/325 MG 1 TAB TAB PO SCH ×5 (05:30→23:45)
[2018-10-15] MEDS: NACL 0.9% 1,000 ML IV SCH ×3 (05:31→19:44)
[2018-10-15] MEDS: MEROPENEM 1,000 MG in NACL 0.9% 100 ML IV SCH ×3 (05:39→21:18)
[2018-10-15 07:02] LABS: BASOPHILS % (AUTO) 0.1 % (0.0-2.0); EOSINOPHILS # (AUTO) 0.6 K/uL (0-0.4); EOSINOPHILS % (AUTO) 5.7 % (0.0-4.0); HEMATOCRIT 22.6 % (36-48); HEMOGLOBIN 7.5 g/dL (12.0-16.0); LYMPHOCYTES # (AUTO) 1.6 K/uL (2.5-16.5); LYMPHOCYTES % (AUTO) 16.3 % (20.5-51.1); MEAN CORPUSCULAR HEMOGLOBIN 29 pg (27-31); MEAN CORPUSCULAR HGB CONC 33 g/dL (33-37); MEAN CORPUSCULAR VOLUME 86.9 fL (80-94); MONOCYTES % (AUTO) 9.6 % (1.7-9.3); NEUTROPHILS # (AUTO) 6.8 K/uL (1.8-7.7); NEUTROPHILS % (AUTO) 68.3 % (42.2-75.2); PLATELET COUNT (AUTO) 244 K/uL (140-450); RED BLOOD CELL COUNT(AUTO) 2.61 MIL/uL (4.20-5.40); RED CELL DISTRIBUTION WIDTH 15.5 % (11.6-13.7)
--- NOTE | 2018-10-15 07:20 | NUR ---
RECEIVED REPORT FROM ENSEMBLE MEMBER. PATIENT ASLEEP, AROUSABLE BY SPEECH. NO DISTRESS NOTED. DENIES PAIN, FLACC 0. RESPIRATIONS EVEN UNLABORED ON VENTILATOR. VENT SETTINGS; FIO2 28% VT450 RATE 14 FLOW 50 PEEP 5 PMAX 50. HAS RIGHT IJ NOTED INFUSING IVF PER ORDERS. LEFT THUMB IV NOTED, ON SALINE LOCK. FOLLEY CATH IN PLACE. COLOSTOMY IN PLACE. SKIN HAS SACRAL ULCER, DRESSING DRY AND INTACT. RIGHT HEEL AND LEFT TOE UNSTAGEABLE WOUND NOTED. SAFETY MEASURES IN PLACE. CALL LIGHT WITHIN REACH. WILL CONTINUE TO MONITOR
[2018-10-15] MEDS: ALBUTEROL SULFATE/IPRATROPIU 3 ML SOL IH SCH ×3 (07:22→19:35)
--- NOTE | 2018-10-15 07:30 | NUR ---
RECEIVED TRACH PT WITH A SHILEY 6 TRACH ON VENT. SETTINGS AC/VC 14, VT 450, PEEP 5 AND FIO2 28%. PT IS ASLEEP AT THIS TIME NOT IN ANY DISTRESS. TRACH IS SECURE WITH A PATENT AIRWAY. VENT IS PLUGGED INTO A RED OUTLET WITH ALARMS ON AND FUNCTIONING. WILL CONTINUE TO MONITOR.
[2018-10-15 08:02] LABS: ANION GAP 10.2 (8-16); CARBON DIOXIDE 26.9 mmol/L (21-32); CREATININE 0.5 mg/dL (0.6-1.3); POTASSIUM 4.1 mmol/L (3.5-5.1)
[2018-10-15 08:07] LABS: MAGNESIUM 1.5 mg/dL (1.8-2.4); PHOSPHORUS 2.6 mg/dL (2.5-4.9)
[2018-10-15 08:17] VITALS: BP 125/53
[2018-10-15] MEDS: FERROUS SULFATE 300 MG/5 ML UDC GT SCH (08:56)
[2018-10-15] MEDS: ZINC SULF 220 MG CAP GT SCH (08:56)
[2018-10-15] MEDS: ASCORBIC ACID 500 MG/5 ML ORASYR GT SCH (08:56)
[2018-10-15] MEDS: CITALOPRAM 20 MG TAB GT SCH (08:56)
[2018-10-15] MEDS: CALCIUM CARB/VIT-D 500 MG/200 IU 1 TAB GT SCH (08:57)
[2018-10-15] MEDS: LACTOBACILLUS RHAMNOSUS GG 1 EACH CAP GT SCH (08:57)
[2018-10-15] MEDS: FAMOTIDINE 20 MG TAB GT SCH ×2 (08:57→21:20)
[2018-10-15] MEDS: SODIUM PHOS / POTASSIUM PHOS 1 PKT PDR GT SCH (08:57)
[2018-10-15] MEDS: AMIODARONE 200 MG TAB PO SCH ×2 (08:57→21:30)
[2018-10-15] MEDS: BACLOFEN 10 MG TAB PO SCH ×4 (08:57→21:20)
[2018-10-15] MEDS: VANCOMYCIN 750 MG in DEXTROSE 5% 250 ML IV SCH ×2 (08:58→21:18)
[2018-10-15] MEDS: MULTIVITAMIN/MINERALS 15 ML UDBTL GT SCH (08:58)
--- NOTE | 2018-10-15 09:32 | NUR ---
Iron Molder Helper Note: Anna chawla [facility] is here evaluating patient, I provided her with inquiry.
--- NOTE | 2018-10-15 09:36 | NUR ---
PATIENT LYING DOWN IN BED, AROUSABLE BY VOICE. NO DISTRESS NOTED. DENIES ANY PAIN. GTUBE RESIDUAL CHECKED AT 5 ML. SCHEDULED MEDICATIONS DUE GIVEN. WILL CONTINUE TO MONITOR.
--- NOTE | 2018-10-15 10:42 | NUR ---
Case Managers Note: Per Anna (Lolly Rosario) from [facility] / , she can accept patient upon discharge, if patient is not on isolation upon discharge, Office Asst Jinny made aware.
[2018-10-15 12:00] VITALS: BP 98/58
[2018-10-15] MEDS: GAUZE TP SCH (12:30)
--- NOTE | 2018-10-15 12:50 | NUR ---
MEDICATION ADMINISTERED PER ORDER. PATIENT TOLERATED WELL. WILL CONTINUE TO EVALUATE
--- NOTE | 2018-10-15 13:20 | NUR ---
PT ASLEEP AT THIS TIME NOT IN ANY DISTRESS. WILL CONTINUE TO MONITOR.
--- NOTE | 2018-10-15 14:17 | NUR ---
PATIENT SLEEPING. AROUSABLE BY VOICE. CONDITION UNCHANGED. WILL CONTINUE TO MONITOR
--- NOTE | 2018-10-15 14:20 | NUR ---
10/15/18 RD FOLLOW UP COMPLETED PLEASE REFER TO NUTRITION ASSESSMENT UNDER CARE ACTIVITY FOR ESTIMATED NUTRITIONAL NEEDS. 1. CONTINUE JEVITY 1.2 TO 70 ML/HR TO PROVIDE 2160 KCAL, 92G PROTEIN AND 1356ML FLUID. THIS MEETS 100% OF CALORIC AND PROTEIN NEEDS. FREE WATER FLUSH 100 ML Q6H 2. CONTINUE VITAMIN C 500MG BID FOR WOUND HEALING 3. RD WILL F/U 2-3 DAYS; HIGH RISK VANNA DEVINE RD
--- NOTE | 2018-10-15 15:39 | NUR ---
[facility] SPOKE WITH KIMBERLY FERNANDEZ [phone] NOTIFIED THAT PT AND FAMILY MEMBER REFUSED TO GO BACK TO [facility] . [facility] WILL ACCEPT PATIENT . MEHRDAD HARRIS PROVIDED THE AUTH # FOR [facility] [id number] AND FOR ELISHA AUTH # [id number]
[2018-10-15] MEDS: MAG SULF 2000 MG/WATER PREMIX 50 ML IV SCH ×2 (15:49→17:55)
--- NOTE | 2018-10-15 16:37 | NUR ---
SCHEDULED MEDICATION GIVEN PER ORDER. TOLERATED WELL. WILL CONTINUE TO EVALUATE
--- NOTE | 2018-10-15 17:45 | NUR ---
PT SUCTIONED OBTAINED SMALL AMOUNT OF THICK WHITE SECRETIONS, AIRWAY IS PATENT AND TRACH IS SECURE. PT IS AWAKE IN BED NOT IN ANY DISTRESS. VENT ALARMS REMAIN ON AND FUNCTIONING.
[2018-10-15 18:53] VITALS: BP 94/48
--- NOTE | 2018-10-15 19:20 | NUR ---
GAVE REPORT TO IMPLEMENTATION COORDINATOR NURSE FOR CONTINUITY OF CARE. PATIENT IN STABLE CONDITION.
--- NOTE | 2018-10-15 19:22 | NUR ---
RECEIVED PT FROM SHMUEL CARRION PT AAOX4 QUADRIPLEGIC ON IJ TRIPLE LUMEN ON RT NECK AND HL ON RT WRIST TRACH TI VENT TV 450 FIO2 28 , PEEP 5 MULTIPLES WOUNG DRESSING DRY AND INTACT ON TELEMETRY SB 57 R WIGGINS CATH DRAINING WELL YELLOW URINE, G TUBE FEEDING WELL TOLERATED , AND COLOSTOMY BAG DRAINING WELL YELLOW LIQUID STOOL I ON TELEMETRY SB INITIAL ASSESSMENT BRYANT
[2018-10-15 20:00] VITALS: BP 98/53
--- NOTE | 2018-10-15 21:30 | NUR ---
RESP THERAY IS HERE ASSISSTING THE PT AND ALL MEDIC GIVEN ORDER
[2018-10-15] MEDS: ALBUTEROL SULFATE/IPRATROPIU 3 ML SOL IH PRN (23:12)
[2018-10-16] VITALS: BP 95/48
--- NOTE | 2018-10-16 | NUR ---
HOB 30 DEGREE PT SUCTIONED NECESSARY SPONGE BATH GIVEN LINEN CHANGED REPOSITIONED, TRACH TO VENT REMAIN SAME SETTING
[2018-10-16] MEDS: THERAHONEY GEL 42.5 GM TP SCH ×2 (01:00→14:15)
[2018-10-16] MEDS: NACL 0.9% 1,000 ML IV SCH ×2 (01:55→04:57)
--- NOTE | 2018-10-16 02:00 | NUR ---
REPOSITIONED Q2H , TRACH TO VENT REMAIN SAME SETTING, ON TELEMETRY SB, NOT SOB NOTED SUCTIONED NECESSARY G TUBE FEEDING WELL TOLERATED,
[2018-10-16 04:00] VITALS: BP 91/45
--- NOTE | 2018-10-16 04:00 | NUR ---
SPONGE BATH GIVEN LINEN CHANGED TRACH TO SENTHIL REMAIN STABLE NOT SOB NOTED HOB 30 DEGRE ORAL CARE GIVEN WITH VAP KIT, ON TELEMETRY SB
[2018-10-16] MEDS: MEROPENEM 1,000 MG in NACL 0.9% 100 ML IV SCH ×3 (04:26→20:14)
[2018-10-16] MEDS: MIDODRINE 5 MG TAB PO SCH ×3 (04:28→20:16)
[2018-10-16] MEDS: ALBUTEROL SULFATE/IPRATROPIU 3 ML SOL IH PRN (04:35)
--- NOTE | 2018-10-16 05:03 | NUR ---
PT SLEEPING AFTER RESP THERPY WAS GIVEN , ON TELEMETRY SB TRACH TO SENTHIL REMAIN SAME SETTING
[2018-10-16] MEDS: HYDROcodone/APAP 5/325 MG 1 TAB TAB PO SCH ×3 (06:00→17:10)
--- NOTE | 2018-10-16 06:24 | NUR ---
PT HOB 30 DEGREE TRACH TO SENTHIL REMAIN THE SAME SETTING , PT SLEEPING NOT SOB NOTED PT ON TELEMETRY SB , PT WILL BE ENDORSED TO DAY SHIFT NURSE FOR CONTINUE OF CARE
--- NOTE | 2018-10-16 06:46 | NUR ---
RECEIVED TRACH PT WITH A SHILEY 6 TRACH ON VENT. SETTINGS AC/VC 14, VT 450, PEEP 5 AND FIO2 28%. PT IS AWAKE AT THIS TIME NOT IN ANY DISTRESS. TRACH IS SECURE WITH A PATENT AIRWAY. VENT IS PLUGGED INTO A RED OUTLET WITH ALARMS ON AND FUNCTIONING. WILL CONTINUE TO MONITOR.
[2018-10-16] MEDS: ALBUTEROL SULFATE/IPRATROPIU 3 ML SOL IH SCH ×3 (06:47→19:19)
--- NOTE | 2018-10-16 07:15 | NUR ---
RECEIVED REPORT FROM PRESETTER OPERATOR. PATIENT ASLEEP, AROUSABLE BY SPEECH. NO DISTRESS NOTED. DENIES PAIN, FLACC 0. RESPIRATIONS EVEN UNLABORED ON VENTILATOR WITH VENT SETTINGS AT FIO2 28% VT450 RATE 14 FLOW 50 PEEP 5 PMAX 50. HAS RIGHT IJ INFUSING IVF PER ORDERS. LEFT THUMB IV NOTED, ON SALINE LOCK. FOLLEY CATH IN PLACE. COLOSTOMY IN PLACE. SKIN HAS SACRAL ULCER, DRESSING DRY AND INTACT. RIGHT HEEL AND LEFT TOE UNSTAGEABLE WOUND NOTED. SAFETY MEASURES IN PLACE. CALL LIGHT WITHIN REACH. WILL CONTINUE TO MONITOR
[2018-10-16 07:48] VITALS: BP 101/49
[2018-10-16 08:17] LABS: BASOPHILS % (AUTO) 0.2 % (0.0-2.0); EOSINOPHILS # (AUTO) 0.6 K/uL (0-0.4); EOSINOPHILS % (AUTO) 5.6 % (0.0-4.0); HEMATOCRIT 23.1 % (36-48); HEMOGLOBIN 7.6 g/dL (12.0-16.0); LYMPHOCYTES % (AUTO) 9.9 % (20.5-51.1); MEAN CORPUSCULAR HEMOGLOBIN 28 pg (27-31); MEAN CORPUSCULAR HGB CONC 33 g/dL (33-37); MEAN CORPUSCULAR VOLUME 86.7 fL (80-94); MONOCYTES # (AUTO) 0.8 K/uL (0.8-1.0); MONOCYTES % (AUTO) 8.1 % (1.7-9.3); NEUTROPHILS # (AUTO) 7.7 K/uL (1.8-7.7); NEUTROPHILS % (AUTO) 76.2 % (42.2-75.2); PLATELET COUNT (AUTO) 244 K/uL (140-450); RED BLOOD CELL COUNT(AUTO) 2.67 MIL/uL (4.20-5.40); RED CELL DISTRIBUTION WIDTH 15.6 % (11.6-13.7); WHITE BLOOD COUNT (AUTO) 10.1 K/uL (4.8-10.8)
[2018-10-16 08:28] LABS: ANION GAP 7.9 (8-16); CARBON DIOXIDE 28.8 mmol/L (21-32); CREATININE 0.5 mg/dL (0.6-1.3); POTASSIUM 4.7 mmol/L (3.5-5.1)
[2018-10-16 08:48] LABS: MAGNESIUM 1.8 mg/dL (1.8-2.4); PHOSPHORUS 2.9 mg/dL (2.5-4.9)
[2018-10-16] MEDS: MULTIVITAMIN/MINERALS 15 ML UDBTL GT SCH (09:22)
[2018-10-16] MEDS: LACTOBACILLUS RHAMNOSUS GG 1 EACH CAP GT SCH (09:22)
[2018-10-16] MEDS: BACLOFEN 10 MG TAB PO SCH ×4 (09:22→20:16)
[2018-10-16] MEDS: ASCORBIC ACID 500 MG/5 ML ORASYR GT SCH (09:22)
[2018-10-16] MEDS: CITALOPRAM 20 MG TAB GT SCH (09:23)
[2018-10-16] MEDS: SODIUM PHOS / POTASSIUM PHOS 1 PKT PDR GT SCH (09:23)
[2018-10-16] MEDS: FAMOTIDINE 20 MG TAB GT SCH ×2 (09:23→20:12)
[2018-10-16] MEDS: AMIODARONE 200 MG TAB PO SCH ×2 (09:24→20:15)
[2018-10-16] MEDS: ZINC SULF 220 MG CAP GT SCH (09:24)
[2018-10-16] MEDS: FERROUS SULFATE 300 MG/5 ML UDC GT SCH (09:48)
[2018-10-16] MEDS: CALCIUM CARB/VIT-D 500 MG/200 IU 1 TAB GT SCH (09:48)
--- NOTE | 2018-10-16 09:50 | NUR ---
MEDICATIONS ADMINISTERED PER ORDER. TOLERATED WELL. WILL CONTINUE TO MONITOR.
[2018-10-16] MEDS: VANCOMYCIN 750 MG in DEXTROSE 5% 250 ML IV SCH ×2 (10:20→22:14)
--- NOTE | 2018-10-16 10:34 | NUR ---
VANCOMYCIN ADMINISTERED PER PHARMACIST. PHARMACIST AWARE OF VANCO TROUGH 20.2. INSTRUCTED TO GIVE 0900 DOSE ANYWAYS DUE TO LAB DRAWING VANCO TROUGH AT 0600 INSTEAD OF 0800. PHARMACIST PLANNING TO DRAW ANOTHER VANCO TROUGH TOMORROW MORNING AT 0800
--- NOTE | 2018-10-16 11:34 | NUR ---
MEDICATION ADMINISTERED PER ORDER. PATIENT TOLERATED WELL. WILL CONTINUE TO MONITOR.
--- NOTE | 2018-10-16 11:59 | NUR ---
PT BEING CHANGED/CLEANED AT THIS TIME NOT IN ANY DISTRESS. WILL CONTINUE TO MONITOR.
[2018-10-16 12:00] VITALS: BP 126/65
--- NOTE | 2018-10-16 13:54 | NUR ---
PT IN BED WATCHING TV NOT IN ANY DISTRESS. NO SUCTION INDICATED AT THIS TIME. WILL CONTINUE TO MONITOR.
[2018-10-16] MEDS: GAUZE TP SCH (14:14)
[2018-10-16 16:00] VITALS: BP 123/58
--- NOTE | 2018-10-16 17:21 | NUR ---
MEDICATION ADMINISTERED PER ORDER. TOLERATED WELL. PATIENT NOT UNDER DISTRESS. WILL CONTINUE TO MONITOR.
--- NOTE | 2018-10-16 17:35 | NUR ---
VENT CHECK COMPLETED. TRACH SECURE WITH A PATENT AIRWAY. VENT ALARMS ON AND FUNCTIONING. PT NOT IN ANY DISTRESS.
--- NOTE | 2018-10-16 18:31 | NUR ---
G TUBE FEEDING CHANGED, MAINTAINING RATE OF 70 ML/H. WILL CONTINUE TO MONITOR
--- NOTE | 2018-10-16 19:21 | NUR ---
GAVE REPORT TO SHREDDING MACHINE OPERATOR NURSE FOR CONTINUITY OF CARE. PATIENT IN STABLE CONDITION.
--- NOTE | 2018-10-16 19:22 | NUR ---
RECEIVED REPORT FROM AM SHIFT. PATIENTAWAKE,O X 4. NO DISTRESS NOTED. DENIES PAIN, ABLE TO VERBALIZE THROUGH LIP READING AND NODDING/SHAKING HEAD. RESPIRATIONS EVEN UNLABORED ON VENTILATOR WITH VENT SETTINGS AT FIO2 28% VT450 RATE 14 FLOW 50 PEEP 5 PMAX 50. W/ RIGHT IJ, PATENT. WITH JEVITY 1.2 RUNNING AT 70, 100 Q 6 H20 FLUSH VIA GTUBE, PATENT AND INTACT. W/LEFT THUMB IV, SALINE LOCK. WIGGINS CATH IN PLACE. COLOSTOMY IN PLACE. SKIN HAS SACRAL ULCER, DRESSING DRY AND INTACT. RIGHT HEEL AND LEFT TOE UNSTAGEABLE WOUND NOTED. FALL PRECAUTIONS IN PLACE. CALL LIGHT WITHIN REACH. WILL CONTINUE TO MONITOR
[2018-10-16 20:00] VITALS: BP 110/59
--- NOTE | 2018-10-16 21:35 | NUR ---
INFORMED PHARMACIST [place], THAT VANCO TROUGH IS 20.2. PER PHARMACIST SAFE TO GIVE VANCO
--- NOTE | 2018-10-16 22:00 | NUR ---
PT TURNED TO SIDE AND REPOSITIONED, CHANGED. PLACED PT IN COMFORTABLE POSITION
--- NOTE | 2018-10-16 22:17 | NUR ---
D5% IV 250 ML HAS A LEAK, UPPER PART( ONE THAT WAS INCLUDED IN THE VANCO IV) DISCARDED AND TOOK ANOTHER FROM THE PYXIS.
[2018-10-17] VITALS (7 sets, daily range): BP systolic 106–125; BP diastolic 52–64
[2018-10-17] MEDS: HYDROcodone/APAP 5/325 MG 1 TAB TAB PO SCH ×4 (00:50→17:17)
[2018-10-17] MEDS: THERAHONEY GEL 42.5 GM TP SCH ×2 (00:51→12:22)
--- NOTE | 2018-10-17 01:00 | NUR ---
WOUND CARE DONE, DRESSING CLEAN AND INTACT. BILATERAL HEEL PROTECTORS/ BOOTS IN PLACE
--- NOTE | 2018-10-17 01:15 | NUR ---
REPOSITIONED PT, TURNED TO ONE SIDE AND PLACED PILLOWS FOR A MORE COMFORTABLE POSITION.
--- NOTE | 2018-10-17 04:00 | NUR ---
CHANGED THE DRESSING ON THE R AND LEFT BUTTOCKS, AND SACRAL COCCYX PRESSURE ULCER, ASEPTICALLY. THERAHONEY AND ADAPTIC, AND HYDRAGUARD PERIWOUND
--- NOTE | 2018-10-17 04:44 | NUR ---
CENTRAL LINE DRESSING CHANGED, ASEPTICALLY
--- NOTE | 2018-10-17 04:48 | NUR ---
PT C/O OF GAS, DRAINED COLOSTOMY. TEMP STOPPED THE FEEDING WILL INFORM DR. WADSWORTH
--- NOTE | 2018-10-17 05:15 | NUR ---
NO MORE COMPLAINTS OF GAS, RESUMED FEEDING, WILL CONTINUE TO MONITOR
[2018-10-17] MEDS: MEROPENEM 1,000 MG in NACL 0.9% 100 ML IV SCH ×3 (05:24→20:09)
[2018-10-17] MEDS: MIDODRINE 5 MG TAB PO SCH ×3 (05:27→20:15)
--- NOTE | 2018-10-17 06:48 | NUR ---
PT AWAKE, ALERT ORIENTED X 4, BEDBOUND. PT IN STABLE CONDITION AT THIS TIME, NOT IN RESPIRATORY DISTRESS. NOT IN PAIN
--- NOTE | 2018-10-17 07:25 | NUR ---
RECEIVED REPORT FROM MOLASSES FEED MIXER. PATIENT ASLEEP, AROUSABLE BY VOICE. NO DISTRESS NOTED. DENIES PAIN, FLACC 0. RESPIRATIONS EVEN UNLABORED ON VENTILATOR WITH VENT SETTINGS AT FIO2 28% VT450 RATE 14 FLOW 50 PEEP 5 PMAX 50. HAS RIGHT IJ INFUSING IVF PER ORDERS. LEFT WRIST IV NOTED, ON SALINE LOCK. WIGGINS CATH IN PLACE. COLOSTOMY IN PLACE. SKIN HAS SACRAL ULCER, DRESSING DRY AND INTACT. RIGHT HEEL AND LEFT TOE UNSTAGEABLE WOUND NOTED. SAFETY MEASURES IN PLACE. CALL LIGHT WITHIN REACH. WILL CONTINUE TO MONITOR.
[2018-10-17] MEDS: ALBUTEROL SULFATE/IPRATROPIU 3 ML SOL IH SCH ×3 (07:43→19:26)
--- NOTE | 2018-10-17 07:43 | NUR ---
RECEIVED ON A [employer] R860 VENTILATOR PLUGGED INTO RED OUTLET TOLERATING WELL WITHOUT INCIDENT TO A ADDI DCT #7 AIRWAY SECURED WITH A MENG TRACH TIE CUFF PRESSURE CHECKED NOTED AMBU BAG AT BEDSIDE LOC AWAKE AND ALERT "MOUTHING WORDS" GOOD CHEST RISE AIRWAY PATENT Addendum: 10/17/18 at 1034 by Maurizio Bazzi RT TRACHEOSTOMY TUBE CORRECTION: MELLISA DCT #6 AIRWAY
[2018-10-17] MEDS: VANCOMYCIN 750 MG in DEXTROSE 5% 250 ML IV SCH (09:00)
[2018-10-17 09:01] LABS: BASOPHILS # (AUTO) 0.1 K/uL (0.00-0.22); BASOPHILS % (AUTO) 0.6 % (0.0-2.0); EOSINOPHILS # (AUTO) 0.6 K/uL (0-0.4); EOSINOPHILS % (AUTO) 5.9 % (0.0-4.0); HEMOGLOBIN 7.6 g/dL (12.0-16.0); LYMPHOCYTES # (AUTO) 2.1 K/uL (2.5-16.5); LYMPHOCYTES % (AUTO) 19.6 % (20.5-51.1); MEAN CORPUSCULAR HEMOGLOBIN 28 pg (27-31); MEAN CORPUSCULAR HGB CONC 33 g/dL (33-37); MEAN CORPUSCULAR VOLUME 85.8 fL (80-94); MONOCYTES # (AUTO) 0.9 K/uL (0.8-1.0); MONOCYTES % (AUTO) 8.8 % (1.7-9.3); NEUTROPHILS # (AUTO) 7.1 K/uL (1.8-7.7); NEUTROPHILS % (AUTO) 65.1 % (42.2-75.2); PLATELET COUNT (AUTO) 243 K/uL (140-450); RED BLOOD CELL COUNT(AUTO) 2.68 MIL/uL (4.20-5.40); RED CELL DISTRIBUTION WIDTH 15.9 % (11.6-13.7); WHITE BLOOD COUNT (AUTO) 10.8 K/uL (4.8-10.8)
[2018-10-17 09:26] LABS: MAGNESIUM 1.3 mg/dL (1.8-2.4); PHOSPHORUS 2.7 mg/dL (2.5-4.9)
[2018-10-17 09:30] LABS: ANION GAP 10.7 (8-16); CREATININE 0.5 mg/dL (0.6-1.3); POTASSIUM 4.7 mmol/L (3.5-5.1)
[2018-10-17] MEDS: BACLOFEN 10 MG TAB PO SCH ×4 (09:34→20:14)
[2018-10-17] MEDS: ZINC SULF 220 MG CAP GT SCH (09:35)
[2018-10-17] MEDS: LACTOBACILLUS RHAMNOSUS GG 1 EACH CAP GT SCH (09:36)
[2018-10-17] MEDS: CALCIUM CARB/VIT-D 500 MG/200 IU 1 TAB GT SCH (09:36)
[2018-10-17] MEDS: CITALOPRAM 20 MG TAB GT SCH (09:38)
[2018-10-17] MEDS: FAMOTIDINE 20 MG TAB GT SCH ×2 (09:38→20:08)
[2018-10-17] MEDS: AMIODARONE 200 MG TAB PO SCH ×2 (09:40→20:21)
[2018-10-17] MEDS: ASCORBIC ACID 500 MG/5 ML ORASYR GT SCH (09:40)
[2018-10-17] MEDS: FERROUS SULFATE 300 MG/5 ML UDC GT SCH (09:41)
[2018-10-17] MEDS: SODIUM PHOS / POTASSIUM PHOS 1 PKT PDR GT SCH (09:42)
--- NOTE | 2018-10-17 09:45 | NUR ---
PATIENT LYING DOWN IN BED SLEEPING, AROUSABLE BY VOICE. NO DISTRESS NOTED. DENIES ANY PAIN. SCHEDULED MEDICATIONS DUE GIVEN. WILL CONTINUE TO MONITOR.
--- NOTE | 2018-10-17 10:02 | NUR ---
STABLE NO PULMONARY DISTRESS NOTED DEEP TRACHEAL SUCTION FOR SMALL THICK YELLOW SECRETIONS AIRWAY PATENT
[2018-10-17] MEDS: MULTIVITAMIN/MINERALS 15 ML UDBTL GT SCH (10:59)
--- NOTE | 2018-10-17 10:59 | NUR ---
SCHEDULED MEDICATIONS DUE GIVEN. CONDITION UNCHANGED. VANCOMYCIN IV SCHEDULED AT 0900 NOT GIVEN PER PHARMACIST D/T VANCO TROUGH BEING 21.8. WILL CONTINUE TO MONITOR.
--- NOTE | 2018-10-17 11:30 | NUR ---
ASSISTED MECHANICAL EQUIPMENT SALES ENGINEER IN CLEANING AND REPOSITIONING PATIENT. WILL CONTINUE TO MONITOR.
--- NOTE | 2018-10-17 11:59 | NUR ---
RESTING WELL NO DISTRESS NOTED EQUAL CHEST RISE DEEP TRACHEAL SUCTION FOR SMALL THICK PALE YELLOW SECRETIONS AIRWAY PATENT
[2018-10-17] MEDS: GAUZE TP SCH (12:22)
--- NOTE | 2018-10-17 12:27 | NUR ---
PATIENT LYING DOWN IN BED SLEEPING, AROUSABLE BY VOICE. NO DISTRESS NOTED. DENIES ANY PAIN. SCHEDULED MEDICATIONS DUE GIVEN. WILL CONTINUE TO MONITOR.
--- NOTE | 2018-10-17 13:57 | NUR ---
STABLE NO EVIDENCE OF RESPIRATORY DISTRESS NOTED GOOD CHEST RISE DEEP TRACHEAL SUCTION FOR SMALL THICK PALE YALLOW SECRETIONS AIRWAY PATENT Addendum: 10/17/18 at 1411 by Maurizio Bazzi RT YALLOW = YELLOW
[2018-10-17] MEDS ORDERED: MAG SULF 2000 MG/WATER PREMIX 100 ML IV ONE (14:00)
--- NOTE | 2018-10-17 15:27 | NUR ---
SCHEDULED MEDICATIONS DUE GIVEN. CONDITION UNCHANGED. WILL CONTINUE TO MONITOR.
[2018-10-17] MEDS ORDERED: VANCOMYCIN 1,500 MG in DEXTROSE 5% 500 ML IV SCH (16:00)
--- NOTE | 2018-10-17 17:28 | NUR ---
PT REMAINS ON DOCUMENTED VENT SETTINGS. TRACH IS SECURE WITH A PATENT AIRWAY. PT IS AWAKE IN BED NOT IN ANY DISTRESS. VENT ALARMS REMAIN ON AND FUNCTIONING.
--- NOTE | 2018-10-17 17:29 | NUR ---
PATIENT LYING DOWN IN BED WATCHING TV. NO DISTRESS NOTED. CONDITION UNCHANGED. WILL CONTINUE TO MONITOR.
--- NOTE | 2018-10-17 18:44 | NUR ---
PATIENT LYING DOWN IN BED WATCHING TV. NO DISTRESS NOTED. DENIES ANY PAIN. CONDITION UNCHANGED. WILL CONTINUE MONITORING.
--- NOTE | 2018-10-17 19:18 | NUR ---
GAVE REPORT TO SNATH HANDLE ASSEMBLER NURSE FOR CONTINUITY OF CARE. PATIENT IN STABLE CONDITION.
--- NOTE | 2018-10-17 19:19 | NUR ---
RECEIVED REPORT FROM AM SHIFT. PATIENT AWAKE, ALERT O, X 4 BEDBOUND. NO DISTRESS NOTED. DENIES PAIN, ABLE TO VERBALIZE THROUGH LIP READING. RESPIRATIONS EVEN UNLABORED ON VENTILATOR WITH VENT SETTINGS AT FIO2 28% VT450 RATE 14 FLOW 45 PEEP 5 PMAX 45. W/ RIGHT IJ INFUSING IV MAGNESIUM PER ORDERS. LEFT WRIST IV NOTED, ON SALINE LOCK. WIGGINS CATH IN PLACE. COLOSTOMY IN PLACE. SKIN W/ SACRAL ULCER, DRESSING DRY AND INTACT. W/ RIGHT HEEL AND LEFT TOE UNSTAGEABLE WOUND NOTED. SAFETY MEASURES IN PLACE. CALL LIGHT WITHIN REACH. WILL CONTINUE TO MONITOR.
--- NOTE | 2018-10-17 19:28 | NUR ---
RECEIVED TRACH PT WITH A SHILEY 6 TRACH ON VENT. SETTINGS AC/VC 14, VT 450, PEEP 5 AND FIO2 28%. PT IS AWAKE AT THIS TIME NOT IN ANY DISTRESS. TRACH IS SECURE WITH A PATENT AIRWAY. VENT IS PLUGGED INTO A RED OUTLET WITH ALARMS ON AND FUNCTIONING. AMBU BAG AT BEDSIDE. WILL CONTINUE TO MONITOR.
--- NOTE | 2018-10-17 19:38 | NUR ---
MADE ROUND S ON PT CHECKED VITAL SIGNS WNL
--- NOTE | 2018-10-17 20:47 | NUR ---
TOOK RESIDUAL FROM GT TUBE 3 ML; NO BLOATING, NO C/O OF GAS. ADMINISTERED MEDS. PT TOLERATED WELL.
--- NOTE | 2018-10-17 20:48 | NUR ---
ADJUSTED PILLOWS FOR PT, PATIENT REFUSED FOR ME TO CHECK THE SACRAL WOUNDS AT THIS TIME. WILL DO IT LATER. TURNED BUT PT RESISTED, INFORMED HER OF THE RISKS AND BENEFITS OF TURNING Q2. PT SAID WILL DO IT LATER
--- NOTE | 2018-10-17 23:16 | NUR ---
ADJUSTED PILLOWS OF PATIENT; TOOK OUT SOME COLOSTOMY AND CONTENTS AND RELIEVED COLOSTOMY OF GAS
--- NOTE | 2018-10-17 23:45 | NUR ---
PATIENT ANXIOUS, NOT BEEN SLEEPING WELL, SKE VERBALIZED SHE CANT' BREATH. SHES SCARED TO SLEEP; VITALS SIGNS ARE WITHIN NORMAL LIMITS. DR. WADSWORTH INFORMED.WILL ORDER ATIVAN
[2018-10-17] MEDS: LORazepam 2 MG/ML VIAL IM/IVP PRN (23:56)
[2018-10-18] VITALS: BP_SYST 125; BP_SYST 162; BP_DIAS 59; BP_DIAS 65
[2018-10-18] MEDS: HYDROcodone/APAP 5/325 MG 1 TAB TAB PO SCH ×4 (01:00→18:29)
--- NOTE | 2018-10-18 01:00 | NUR ---
WOUND CARE DONE;DRESSING CHANGED, PT C/O PAIN AFTER THE WOUND CARE ON THE BUTTOCKS. JUST GIVEN NORCO AT 0000
[2018-10-18] MEDS: THERAHONEY GEL 42.5 GM TP SCH ×2 (01:05→13:00)
--- NOTE | 2018-10-18 02:00 | NUR ---
PICTURES TAKEN ON THE FF AREAS: R BUTTOCKS PRESSURE ULCER; L BUTTOCKS P U ; SACRAL COOCYX P U; RIGHT HEEL DTI; LEFT TOE DTI (UNSTAGEABLE); MULTIPLE SCABS ON R AND L UE
--- NOTE | 2018-10-18 02:47 | NUR ---
PT C/O OF PAIN D/T PRESSURE ULCER ON THE BUTTOCKS AND SACRUM. WILL GIVE NORCO EARLIER,. DR. WADSWORTH INFORMED, DR. PINEDA
[2018-10-18] MEDS: MORPHINE SULFATE 2 MG/ML SYR IVP PRN (04:02)
[2018-10-18 04:42] VITALS: BP 125/60
[2018-10-18] MEDS: MEROPENEM 1,000 MG in NACL 0.9% 100 ML IV SCH ×3 (05:15→21:25)
[2018-10-18] MEDS: MIDODRINE 5 MG TAB PO SCH ×3 (05:16→21:23)
--- NOTE | 2018-10-18 05:37 | NUR ---
IV SITE ON THE RIGHT WRIST DISLODGED; CATHETER INTACT. NO SWELLING, NO PAIN, NO BLEEDING
[2018-10-18 06:35] LABS: BASOPHILS % (AUTO) 0.4 % (0.0-2.0); EOSINOPHILS # (AUTO) 0.7 K/uL (0-0.4); HEMATOCRIT 21.4 % (36-48); HEMOGLOBIN 7.1 g/dL (12.0-16.0); LYMPHOCYTES # (AUTO) 1.5 K/uL (2.5-16.5); LYMPHOCYTES % (AUTO) 16.9 % (20.5-51.1); MEAN CORPUSCULAR HEMOGLOBIN 29 pg (27-31); MEAN CORPUSCULAR HGB CONC 33 g/dL (33-37); MEAN CORPUSCULAR VOLUME 85.5 fL (80-94); MONOCYTES # (AUTO) 0.8 K/uL (0.8-1.0); MONOCYTES % (AUTO) 8.6 % (1.7-9.3); NEUTROPHILS # (AUTO) 5.9 K/uL (1.8-7.7); NEUTROPHILS % (AUTO) 66.1 % (42.2-75.2); PLATELET COUNT (AUTO) 261 K/uL (140-450); RED CELL DISTRIBUTION WIDTH 15.7 % (11.6-13.7)
--- NOTE | 2018-10-18 06:49 | NUR ---
PT NOW SLEEPING, BUT EASILY AROUSABLE BY VERBAL STIMULI AND TACTILE STIMULI. EARLIER WAS GIVEN MEDS ORDERED BY . FORRESTBOUND, PLACED IN A COMFORTABLE POSITION, NO COMPLAINTS OF PAIN AT THIS TIME; NOT IN RESPIRATORY DISTRESS,WILL ENDORSE TO NEXT SHIFT.
[2018-10-18] MEDS: ALBUTEROL SULFATE/IPRATROPIU 3 ML SOL IH SCH ×3 (07:00→20:54)
--- NOTE | 2018-10-18 07:20 | NUR ---
RECEIVED BEDSIDE REPORT FROM CERTIFIED ORTHOTIST NURSE FOR CONTINUITY OF CARE. PATIENT IS RESTING ON BED AT THIS TIME. AROUSABLE TO VOICE. PATIENT IS AAOX4 AND ABLE TO MAKE NEEDS KNOWN BY LIP READING. RESPIRATION EVEN AND UNLABORED ON VENT TO TRACH FIO2 28, RR 16. NO SIGNS OF DISTRESS NOTED. RIJ TRIPLE LUMEN, CLEAN AND INTACT, SL. MULTIPLE WOUNDS NOTED, SACRAL WOUND COVERED WITH OPTIFOAM, CLEAN AND DRY. BILATERAL HEEL PROTECTORS IN PLACE. TUBE FEEDING IN PLACE, RUNNING JEVITY 1.2 AT 75 ML/HR. WIGGINS CATHETER IN PLACE, DRAINING YELLOW URINE. COLOSTOMY BAG IN PLACE. PATIENT IS BEDREST. DISCUSSED PLAN OF CARE WITH PATIENT. CONTACT PRECAUTION IN PLACE. SAFETY MEASURES IN PLACE. FALL RISK PROTOCOL IN PLACE, BED ALARM ACTIVATED AND WOUND BED ACTIVATED. TELE MONITOR ATTACHED. BED IN LOW POSITION AND CALL LIGHT WITHIN REACH.
--- NOTE | 2018-10-18 07:57 | NUR ---
RECEIVED ON A [employer] R860 VENTILATOR PLUGGED INTO RED OUTLET TOLERATING WELL WITHOUT ADVERSE REACTIONS NOTED TO A MELLISA DCT #6 AIRWAY SECURED WITH A MENG TRACH TIE CUFF PRESSURE CHECKED NOTED AMBU BAG AT BEDSIDE LOC ASLEEP RESTING COMFORTABLE NO EVIDENCE OF PULMONARY DISTRESS NOTED EQUAL CHEST RISE DEEP TRACHEAL SUCTION FOR MODERATE THIN PALE YELLOW SECRETIONS AIRWAY PATENT
[2018-10-18 08:00] VITALS: BP 126/67
[2018-10-18 08:04] LABS: MAGNESIUM 1.8 mg/dL (1.8-2.4); PHOSPHORUS 3.5 mg/dL (2.5-4.9)
[2018-10-18 08:25] LABS: ANION GAP 9.1 (8-16); CARBON DIOXIDE 30.5 mmol/L (21-32); POTASSIUM 4.6 mmol/L (3.5-5.1)
[2018-10-18 08:26] LABS: CREATININE 0.6 mg/dL (0.6-1.3)
--- NOTE | 2018-10-18 09:25 | NUR ---
AWAKE AND ALERT WATCHING TELEVISION NO SOB NOTED GOOD CHEST RISE DEEP TRACHEAL SUCTION FOR MODERATE THICK PALE YELLOW SECRETIONS AIRWAY PATENT
[2018-10-18] MEDS: FERROUS SULFATE 300 MG/5 ML UDC GT SCH (09:43)
[2018-10-18] MEDS: LACTOBACILLUS RHAMNOSUS GG 1 EACH CAP GT SCH (09:43)
[2018-10-18] MEDS: ZINC SULF 220 MG CAP GT SCH (09:43)
[2018-10-18] MEDS: ASCORBIC ACID 500 MG/5 ML ORASYR GT SCH (09:43)
[2018-10-18] MEDS: SODIUM PHOS / POTASSIUM PHOS 1 PKT PDR GT SCH (09:44)
[2018-10-18] MEDS: CITALOPRAM 20 MG TAB GT SCH (09:44)
[2018-10-18] MEDS: CALCIUM CARB/VIT-D 500 MG/200 IU 1 TAB GT SCH (09:44)
[2018-10-18] MEDS: MAGNESIUM OXIDE 400 MG TAB GT SCH (09:45)
[2018-10-18] MEDS: FAMOTIDINE 20 MG TAB GT SCH ×2 (09:45→21:24)
[2018-10-18] MEDS: BACLOFEN 10 MG TAB PO SCH ×4 (09:45→21:24)
[2018-10-18] MEDS: MULTIVITAMIN/MINERALS 15 ML UDBTL GT SCH (09:46)
[2018-10-18] MEDS: AMIODARONE 200 MG TAB PO SCH ×2 (09:46→21:24)
--- NOTE | 2018-10-18 09:48 | NUR ---
ADMINISTERED MEDS PER MD ORDER, CHECKED G-TUBE RESIDUAL AND RECEIVED <5, FLUSHED BEFORE AND AFTER MEDS ADMINISTER, PATIENT TOLERATED WELL. MEDS EDUCATION PROVIDED TO PATIENT AND PATIENT MOUTHED "OK." PATIENT COMPLAINED THAT HER NOSE IS ITCHY AND DRY, CLEAN NOSE WITH WARM WET TOWEL AND COTTON TIPS, PATIENT SAID SHE FEELS MUCH BETTER AFTERWARD. PATIENT AWAKE AND WATCHING TV ON BED AT THIS TIME. NO SIGNS OF DISTRESS NOTED. SAFETY MEASURES IN PLACE. TELE MONITOR ATTACHED. BED IN LOW POSITION AND CALL LIGHT WITHIN REACH. BED ALARM ACTIVATED.
--- NOTE | 2018-10-18 10:45 | NUR ---
ASSISTED OPERATIONS LIAISON TO REPOSITION AND TURN PATIENT. FOUND A SUTURE UNDER PATIENT'S L BREAST, ASKED IF PATIENT HAS ANY PROCEDURE DONE BEFORE AND PATIENT SAID SHE DOES NOT REMEMBER ANY THING ABOUT HER BREAST. PICTURE TAKEN AND NOTIFIED DR ABARCA AND SHOWED DR LOUIE THE PICTURE. POSITIONED PATIENT COMFORTABLY AND OFF LOAD PRESSURE WITH PILLOWS. NO SIGNS OF DISTRESS NOTED. SAFETY MEASURES IN PLACE. TELE MONITOR ATTACHED. BED IN LOW POSITION AND CALL LIGHT WITHIN REACH. BED ALARM ACTIVATED AND WOUND BED ON.
--- NOTE | 2018-10-18 11:30 | NUR ---
NO SOB NOTED EQUAL CHEST RISE NO SUCTIONING AT THIS TIME MERCHANDISE PLANNER TO MONITOR
--- NOTE | 2018-10-18 11:36 | NUR ---
PATIENT AWAKE AND RESTING ON BED AT THIS TIME. NO SIGNS OF DISTRESS NOTED. DENIED PAIN. RESPIRATION EVEN AND UNLABORED ON TRACH TO VENT. NO SIGNS OF DISTRESS NOTED. SAFETY MEASURES IN PLACE. TELE MONITOR ATTACHED. BED IN LOW POSITION AND CALL LIGHT WITHIN REACH. BED ALARM ACTIVATED.
--- NOTE | 2018-10-18 11:47 | NUR ---
RECEIVED A CALL FROM PATIENT'S DAUGHTER ROBINA, MADE HER AWARE THAT [facility] ACCEPTED THE PATIENT. PROVIDED HER WITH THE ADDRESS AND PHONE NUMBER OF [facility], SHE STATED THAT SHE WILL CHECK THE FACILITY FIRST AND SHE WILL LET ME KNOW OF THEIR DECISION.
[2018-10-18 12:00] VITALS: BP 113/51
--- NOTE | 2018-10-18 12:26 | NUR ---
ADMINISTERED MED PER MD ORDER FOR PAIN MANAGEMENT, CHECKED G-TUBE RESIDUAL AND RECEIVED <5 ML, FLUSHED BEFORE AND AFTER MED ADMINISTER, PATIENT TOLERATED WELL. PATIENT IS RESTING ON BED QUIETLY. RESPIRATION EVEN AND UNLABORED ON TRACH TO VENT. NO SIGNS OF DISTRESS NOTED. SAFETY MEASURES IN PLACE. TELE MONITOR ATTACHED. BED IN LOW POSITION AND CALL LIGHT WITHIN REACH. BED ALARM ACTIVATED AND WOUND BED IS ON.
[2018-10-18] MEDS: GAUZE TP SCH (13:00)
[2018-10-18] MEDS: Z-GUARD PASTE TP PRN (13:00)
--- NOTE | 2018-10-18 13:08 | NUR ---
PERFORMED WOUND CARE WITH ASSIST FROM AUTO PARTS DELIVERY DRIVER. CLEANSED SACRAL, RIGHT AND LEFT BUTTOCKS WOUNDS WITH WOUND CARE SOLUTION. PAT DRY AND APPLIED THERAHONEY GEL WITH ADAPTIC DRESSING, COVERED WITH OPTIFOAM. APPLY HEEL PROTECTORS ON TO BOTH HEELS. OFFLOAD BILATERAL HEELS BY PLACING PILLOWS UNDER LEGS AND POSITIONED PATIENT IN COMFORT POSITION WITH PILLOWS UNDER BOTH ARMS AND BETWEEN ELBOWS. PATIENT TOLERATED OK. PATIENT AWAKE AND WATCHING TV AT THIS TIME. SAFETY MEASURES IN PLACE. BED IN LOW POSITION AND CALL LIGHT WITHIN REACH. BED ALARM ACTIVATED AND WOUND BED IN ON.
--- NOTE | 2018-10-18 14:14 | NUR ---
PATIENT IS RESTING ON BED AT THIS TIME. RESPIRATION EVEN AND UNLABORED ON TRACH TO VENT. DENIED PAIN. NO SIGNS OF DISTRESS NOTED. SAFETY MEASURES IN PLACE. TELE MONITOR ATTACHED. BED IN LOW POSITION AND CALL LIGHT WITHIN REACH. BED ALARM ACTIVATED AND WOUND ON.
--- NOTE | 2018-10-18 15:24 | NUR ---
PATIENT IS SLEEPING ON BED AT THIS TIME. FLACC 0. RESPIRATION EVEN AND UNLABORED ON TRACH TO VENT. NO SIGNS OF DISTRESS NOTED. SAFETY MEASURES IN PLACE. BED IN LOW POSITION AND CALL LIGHT WITHIN REACH. BED ALARM ACTIVATED AND WOUND BED IN ON. TELE MONITOR IN PLACE. SPO2 MONITOR ATTACH AND SPO2 AT 99%.
--- NOTE | 2018-10-18 15:48 | NUR ---
RESTING WELL WITHOUT RESPIRATORY DISTRESS NOTED GOOD CHEST RISE AIRWAY PATENT
[2018-10-18 16:00] VITALS: BP 119/54
--- NOTE | 2018-10-18 17:16 | NUR ---
ADMINISTERED MED VIA G-TUBE PER MD ORDER, CHECKED G-TUBE RESIDUAL AND RECEIVED <5 ML, FLUSHED BEFORE AND AFTER ADMINISTER MED, PATIENT TOLERATED WELL. PATIENT IS RESTING ON BED AT THIS TIME. RESPIRATION EVEN AND UNLABORED ON TRACH TO VENT, SPO2 AT 99% AT THIS TIME. NO SIGNS OF DISTRESS NOTED. SAFETY MEASURES IN PLACE. BED IN LOW POSITION AND CALL LIGHT WITHIN REACH. BED ALARM ACTIVATED AND WOUND BED IS ON. TELE MONITOR ATTACHED.
--- NOTE | 2018-10-18 17:32 | NUR ---
PT ASLEEP AT THIS TIME NOT IN ANY DISTRESS. TRACH IS SECURE WITH PATENT AIRWAY. VENT ALARMS REMAIN ON AND FUNCTIONING.
--- NOTE | 2018-10-18 18:29 | NUR ---
ADMINISTERED MEDS PER MD ORDER VIA G-TUBE, FLUSHED BEFORE AND AFTER MED ADMINISTERED, PATIENT TOLERATED WELL. PATIENT IS RESTING ON BED AT THIS TIME. NO SIGNS OF DISTRESS NOTED. SAFETY MEASURES IN PLACE. BED IN LOW POSITION AND CALL LIGHT WITHIN REACH. BED ALARM ACTIVATED AND TELE MONITOR ATTACHED.
--- NOTE | 2018-10-18 19:25 | NUR ---
ENDORSED PATIENT AT BEDSIDE TO OPTICS TEST TECHNICIAN NURSE FOR CONTINUITY OF CARE. PATIENT IS RESTING ON BED AT THIS TIME. RESPIRATION EVEN AND UNLABORED ON TRACH TO VENT. NO SIGNS OF DISTRESS NOTED. PATIENT IS IN STABLE CONDITION. SAFETY MEASURES IN PLACE. BED IN LOW POSITION AND CALL LIGHT WITHIN REACH. BED ALARM ACTIVATED AND TELE MONITOR ATTACHED.
[2018-10-18 20:00] VITALS: BP 119/60
--- NOTE | 2018-10-18 21:30 | NUR ---
CHECKED GT, NO RESIDUAL NOTED, ADMINISTERED MEDICATIONS THROUGH GTUBE, PATIENT TOLERATED WELL, WILL CONTINUE TO MONITOR.
--- NOTE | 2018-10-18 22:25 | NUR ---
LANA AFTER HOUR PHARMACIST WAS CALLED AND MADE AWARE ABOUT THE VANCO RANDOM LEVEL RESULT 20.2 ,SHE SAID THEY WILL TAKE CARE OF IT IN THE MORNING.
[2018-10-19] MEDS: HYDROcodone/APAP 5/325 MG 1 TAB TAB PO SCH ×5 (00:08→23:54)
[2018-10-19 00:17] VITALS: BP 110/61
--- NOTE | 2018-10-19 01:40 | NUR ---
PT REFUSED TO HAVE DRESSING CHANGE AT THIS TIME. C/O NASAL CONGESTION. DR. MAHONEY MADE AWARE.
[2018-10-19] MEDS ORDERED: FLUTICASONE NASAL 50 MCG/ACTUATION 16 GM BTL NS SCH (02:00)
[2018-10-19] MEDS: THERAHONEY GEL 42.5 GM TP SCH ×2 (03:40→12:48)
--- NOTE | 2018-10-19 03:40 | NUR ---
ABLE TO CHANGE DRESSING ON THE ANILA BUTTOCKS AND SACRAL PRESSURE ULCERS. PT TOLERATED PROCEDURE WELL.
--- NOTE | 2018-10-19 03:45 | NUR ---
ENDORSED PT IN STABLE CONDITION TO SHEYLA ROSS FOR CONTINUITY OF CARE.
--- NOTE | 2018-10-19 03:46 | NUR ---
REPORT RECEIVED FROM MANUELA CARRION. PT IN STABLE CONDITION.
[2018-10-19 04:00] VITALS: BP 138/63
[2018-10-19] MEDS: MORPHINE SULFATE 2 MG/ML SYR IVP PRN ×3 (04:08→22:23)
--- NOTE | 2018-10-19 04:08 | NUR ---
MORPHINE GIVEN FOR 7/10 WOUND PAIN. PT TOLERATED WELL.
[2018-10-19] MEDS: MIDODRINE 5 MG TAB PO SCH ×3 (05:10→21:06)
[2018-10-19] MEDS: MEROPENEM 1,000 MG in NACL 0.9% 100 ML IV SCH (05:10)
--- NOTE | 2018-10-19 05:10 | NUR ---
NORCO AND PROATAMINE CRUSHED AND GIVEN THROUGH GTUBE. MERREM HUNG AND RUNNING. PT TOLERATED WELL. RESIDUAL OF 15ML.
--- NOTE | 2018-10-19 06:40 | NUR ---
PT AWAKE AND ALERT ALWAYS ASKING FOR HELP TO REPOSITION AND MOVE PILLOWS. NO S/S OF DISTRESS NOTED. PT IN STABLE CONDITION.
[2018-10-19] MEDS: ALBUTEROL SULFATE/IPRATROPIU 3 ML SOL IH SCH ×3 (07:12→18:55)
--- NOTE | 2018-10-19 07:12 | NUR ---
RECEIVED PT ON DOCUMENTED SETTINGS, ALARMS ARE ON AND AUDIBLE, PT TRACH MELLISA 6 IS SECURE PT IN HF AWAKE, BS INSP WHHEEZE HHN GVIEN I\L WITH 3 MG DUONEB, BMV HOB, VENT PLUGGED INTO RED OUTLET, CONT. POX IN PLACE
--- NOTE | 2018-10-19 07:20 | NUR ---
REPORT RECEIVED FROM PLYWOOD LAYUP LINE CORE LAYER, NURSE, PT RESTING QUIETLY IN NAD ON TRACH TO VENT, POC REVIEWED, ALL SAFETY MEASURES IN PLACE, WILL CONTINUE TO MONITOR.
[2018-10-19] MEDS: LORazepam 2 MG/ML VIAL IM/IVP PRN (07:33)
[2018-10-19 07:42] LABS: MAGNESIUM 1.5 mg/dL (1.8-2.4)
[2018-10-19 07:53] LABS: ANION GAP 9.4 (8-16); CARBON DIOXIDE 30.1 mmol/L (21-32); CREATININE 0.4 mg/dL (0.6-1.3); POTASSIUM 4.5 mmol/L (3.5-5.1)
[2018-10-19 08:00] VITALS: BP 102/52
--- NOTE | 2018-10-19 08:07 | NUR ---
AM MEDS GIVEN PT RADHA WELL, GT RESIDUAL NONE.
[2018-10-19 08:15] LABS: BASOPHILS % (AUTO) 0.4 % (0.0-2.0); EOSINOPHILS # (AUTO) 0.8 K/uL (0-0.4); EOSINOPHILS % (AUTO) 9.6 % (0.0-4.0); HEMATOCRIT 21.5 % (36-48); LYMPHOCYTES # (AUTO) 1.3 K/uL (2.5-16.5); LYMPHOCYTES % (AUTO) 16.1 % (20.5-51.1); MEAN CORPUSCULAR HEMOGLOBIN 28 pg (27-31); MEAN CORPUSCULAR HGB CONC 32 g/dL (33-37); MEAN CORPUSCULAR VOLUME 86.2 fL (80-94); MONOCYTES # (AUTO) 0.7 K/uL (0.8-1.0); MONOCYTES % (AUTO) 9.3 % (1.7-9.3); NEUTROPHILS # (AUTO) 5.1 K/uL (1.8-7.7); NEUTROPHILS % (AUTO) 64.6 % (42.2-75.2); PLATELET COUNT (AUTO) 281 K/uL (140-450); RED BLOOD CELL COUNT(AUTO) 2.49 MIL/uL (4.20-5.40); RED CELL DISTRIBUTION WIDTH 15.8 % (11.6-13.7)
[2018-10-19] MEDS: MULTIVITAMIN/MINERALS 15 ML UDBTL GT SCH (08:22)
[2018-10-19] MEDS: ASCORBIC ACID 500 MG/5 ML ORASYR GT SCH (08:22)
[2018-10-19] MEDS: LACTOBACILLUS RHAMNOSUS GG 1 EACH CAP GT SCH (08:23)
[2018-10-19] MEDS: CITALOPRAM 20 MG TAB GT SCH (08:24)
[2018-10-19] MEDS: FERROUS SULFATE 300 MG/5 ML UDC GT SCH (08:24)
[2018-10-19] MEDS: MAGNESIUM OXIDE 400 MG TAB GT SCH (08:24)
[2018-10-19] MEDS: CALCIUM CARB/VIT-D 500 MG/200 IU 1 TAB GT SCH (08:25)
[2018-10-19] MEDS: FAMOTIDINE 20 MG TAB GT SCH ×2 (08:25→21:06)
[2018-10-19] MEDS: ZINC SULF 220 MG CAP GT SCH (08:25)
[2018-10-19] MEDS: AMIODARONE 200 MG TAB PO SCH ×2 (08:26→21:06)
[2018-10-19] MEDS: SODIUM PHOS / POTASSIUM PHOS 1 PKT PDR GT SCH (08:27)
[2018-10-19] MEDS: BACLOFEN 10 MG TAB PO SCH ×4 (08:27→21:05)
[2018-10-19] MEDS: FLUTICASONE NASAL 50 MCG/ACTUATION 16 GM BTL NS SCH (08:28)
--- NOTE | 2018-10-19 09:05 | NUR ---
POSITION CHANGED, PT RADHA WELL.
[2018-10-19 09:21] LABS: HEMOGLOBIN 6.9 g/dL (12.0-16.0)
--- NOTE | 2018-10-19 10:15 | NUR ---
CONTACTED PATIENT'S DAUGHTER ROBINA CHAUDHARY AT [phone] REGARDING PLACEMENT, SHE STATED THAT THEY ARE ON THEIR WAY TO [facility] TO CHECK THE PLACE OUT. I ALSO INFORMED HER THAT I SPOKE TO THE PATIENT AND PATIENT IS AGREEABLE TO THE PLACE.
--- NOTE | 2018-10-19 11:48 | NUR ---
RECEIVED A CALL FROM PATIENT'S DAUGHTER ROBINA, SHE TOLD ME THAT THEY TOURED [facility] AND IS HAPPY WITH THE PLACE.
[2018-10-19 12:00] VITALS: BP 99/52
[2018-10-19] MEDS: ACETAMINOPHEN 325 MG TAB PO SCH (12:00)
[2018-10-19] MEDS: GAUZE TP SCH (12:48)
--- NOTE | 2018-10-19 13:27 | NUR ---
BED BATH GIVEN, PERICARE DONE, WOUND CARE DONE, RT AT BEDSIDE FOR NEB TX
--- NOTE | 2018-10-19 14:02 | NUR ---
PER BLOOD BANK, PT WITH ANTIBODY, CROSS MACH PENDING RED CROSS. PRBC WILL BE DELAYED UNTIL LATER TONIGHT OR TOMORROW.
--- NOTE | 2018-10-19 15:53 | NUR ---
TELEPHONE CONSENT FOR BLOOD TRANSFUSION OBTAINED BY DAUGHTER JACQUELIN JIMENEZ.
[2018-10-19 16:00] VITALS: BP 125/71
[2018-10-19 16:56] LABS: BASOPHILS # (AUTO) 0.1 K/uL (0.00-0.22); BASOPHILS % (AUTO) 0.9 % (0.0-2.0); EOSINOPHILS # (AUTO) 0.9 K/uL (0-0.4); EOSINOPHILS % (AUTO) 9.3 % (0.0-4.0); HEMOGLOBIN 7.3 g/dL (12.0-16.0); LYMPHOCYTES # (AUTO) 1.3 K/uL (2.5-16.5); LYMPHOCYTES % (AUTO) 12.5 % (20.5-51.1); MEAN CORPUSCULAR HEMOGLOBIN 28 pg (27-31); MEAN CORPUSCULAR HGB CONC 33 g/dL (33-37); MEAN CORPUSCULAR VOLUME 84.5 fL (80-94); MONOCYTES # (AUTO) 0.8 K/uL (0.8-1.0); MONOCYTES % (AUTO) 8.2 % (1.7-9.3); NEUTROPHILS # (AUTO) 6.9 K/uL (1.8-7.7); NEUTROPHILS % (AUTO) 69.1 % (42.2-75.2); PLATELET COUNT (AUTO) 302 K/uL (140-450); RED CELL DISTRIBUTION WIDTH 16.1 % (11.6-13.7)
--- NOTE | 2018-10-19 17:20 | NUR ---
PT C/O NOT FEELING COMFORTABLE, WANTS TO CONSTANTLY PLACE OR REMOVE PILLOWS AROUND HER, REPOSITIONED FOR COMFORT, WILL CONTINUE TO MONITOR
--- NOTE | 2018-10-19 18:38 | NUR ---
CALLED HER DAUGHTER ALLY REQUESTED BY PT.
--- NOTE | 2018-10-19 19:17 | NUR ---
RECEIVED REPORT FROM DAY NURSE, PATIENT IS AWAKE, ALERT & ORIENTED X3, PATIENT IS ON TRACH TO VENT WITH O2 SAT OF 99%, NO RESPIRATORY DISTRESS NOTED, WITH R. IJ TRIPLE LUMEN CENTRAL LINE, G TUBE ON JEVITY 70 ML/HR TOLERATING WELL, F/C, COLOSTOMY BAG, ON CONTACT ISOLATION, PROTOCOL IN PLACE. NO COMPLAINS OF PAIN, REPOSITIONED FOR COMFORT, BED ON LOW POSITION, CALL LIGHT WITHIN REACH, WILL CONTINUE TO MONITOR.
--- NOTE | 2018-10-19 19:19 | NUR ---
REPORT GIVEN TO LEAD RADIOLOGIC TECHNOLOGIST NURSE, PT RESTING QUIETLY IN NAD.
[2018-10-19 19:30] VITALS: BP 118/68
--- NOTE | 2018-10-19 20:30 | NUR ---
DR. MICHELLE CAME IN AND CHECKED ON PT. NO NEW ORDER MADE.
--- NOTE | 2018-10-19 21:06 | NUR ---
ADMINISTERED MEDICATION THROUGH G TUBE, HUNG NEW BAG OF Intarcia TherapeuticsITY 1.2, RUNNING AT 70ML/HR, PATIENT SHOWED NO SIGNS OF DISTRESS, WILL CONTINUE TO MONITOR.
--- NOTE | 2018-10-19 22:30 | NUR ---
MAGNESIUM LEVEL 1.[address] MAHONEY MADE AWARE. WILL WAIT FOR NEW ORDER.
[2018-10-19] MEDS: ALBUTEROL SULFATE/IPRATROPIU 3 ML SOL IH PRN (23:04)
[2018-10-20] VITALS (7 sets, daily range): BP systolic 96–136; BP diastolic 42–69
[2018-10-20] MEDS: THERAHONEY GEL 42.5 GM TP SCH ×3 (01:00→23:51)
--- NOTE | 2018-10-20 01:00 | NUR ---
PT REFUSED TO HAVE WOUND DRESSING CHANGE AT THIS TIME. BUT ABLE TO REPOSITIONED FOR COMFORT.
--- NOTE | 2018-10-20 02:30 | NUR ---
MADE ROUNDS. PT ASLEEP. NO S/S OF ANY RESPIRATORY DISTRESS NOTED.
[2018-10-20] MEDS: ALBUTEROL SULFATE/IPRATROPIU 3 ML SOL IH PRN (04:05)
[2018-10-20] MEDS: FLUTICASONE NASAL 50 MCG/ACTUATION 16 GM BTL NS SCH (04:37)
--- NOTE | 2018-10-20 04:40 | NUR ---
PT REPOSITIONED FOR COMFORT. NO DISTRESS NOTED. O2 SAT 100%.
[2018-10-20] MEDS: HYDROcodone/APAP 5/325 MG 1 TAB TAB PO SCH ×4 (05:12→23:51)
[2018-10-20] MEDS: MIDODRINE 5 MG TAB PO SCH ×3 (05:12→20:53)
[2018-10-20] MEDS: LORazepam 2 MG/ML VIAL IM/IVP PRN (05:47)
--- NOTE | 2018-10-20 05:47 | NUR ---
PT VERY AGITATED. ATIVAN 1MG IVP GIVEN ORDERED. WILL CONTINUE TO MONITOR.
[2018-10-20] MEDS: ACETAMINOPHEN 325 MG TAB PO SCH (06:00)
--- NOTE | 2018-10-20 06:15 | NUR ---
I UNIT PRBC READY FRO TRANSFUSION. BLOOD VERIFIED WITH SHEYLA RAMOSOFFICE WORKFORCE PLANNER AND WITH PT. V/S TAKEN PRIOR TO TRANSFUSION. AND PRE MEDICATED . PT MADE AWARE OF THE POSSIBLE REACTIONS. WILL CONTINUE TO MONITOR.
--- NOTE | 2018-10-20 07:10 | NUR ---
GAVE REPORT TO DAY SHIFT NURSETYRONE, PATIENT IN STABLE CONDITION.
--- NOTE | 2018-10-20 07:11 | NUR ---
RECEIVED BEDSIDE REPORT FROM RESIDENTIAL DESIGNER NURSE. PATIENT IS AWAKE, ALERT AND ORIENTEDX4. NO SIGNS OF DISTRESS ON TRACH TO VENT. VENT SETTINGS ARE FIO2 28 VT 450 RATE 14 FLOW 35 PEEP 5 PMAX 45. PATIENT IS BEDBOUND, FALL RISK PROTOCOL IN PLACE. ASP PRECAUTIONS IN PLACE. PATIENT HAS WOUNDS, SEE WOUND ASSESSMENT. PATIENT ON WOUND CARE BED. WIGGINS AND COLOSTOMY BOTH PATIENT AND CLEAN. ANILA HEEL PROTECTORS IN PLACE. RIJ TRIPLE LUMEN CATH INFUSING BLOOD TRANSFUSION AT 100. NO SIGNS OF REACTION AT THIS TIME. GTUBE CLEAN AND DRY INFUSING JEVITY 1.2 AT 70 W H20 FLUSH 100 Q 6HRS. BED IN LOW POSITION. CALL LIGHT WITHIN REACH. WILL CONTINUE TO MONITOR THE PATIENT.
[2018-10-20 08:01] LABS: BASOPHILS # (AUTO) 0.1 K/uL (0.00-0.22); BASOPHILS % (AUTO) 0.9 % (0.0-2.0); EOSINOPHILS # (AUTO) 1.1 K/uL (0-0.4); EOSINOPHILS % (AUTO) 11.9 % (0.0-4.0); HEMATOCRIT 23.3 % (36-48); HEMOGLOBIN 7.6 g/dL (12.0-16.0); LYMPHOCYTES # (AUTO) 1.2 K/uL (2.5-16.5); LYMPHOCYTES % (AUTO) 12.5 % (20.5-51.1); MEAN CORPUSCULAR HEMOGLOBIN 28 pg (27-31); MEAN CORPUSCULAR HGB CONC 33 g/dL (33-37); MEAN CORPUSCULAR VOLUME 86.7 fL (80-94); MONOCYTES # (AUTO) 0.9 K/uL (0.8-1.0); MONOCYTES % (AUTO) 10.2 % (1.7-9.3); NEUTROPHILS # (AUTO) 5.9 K/uL (1.8-7.7); NEUTROPHILS % (AUTO) 64.5 % (42.2-75.2); PLATELET COUNT (AUTO) 338 K/uL (140-450); RED BLOOD CELL COUNT(AUTO) 2.69 MIL/uL (4.20-5.40); RED CELL DISTRIBUTION WIDTH 15.9 % (11.6-13.7); WHITE BLOOD COUNT (AUTO) 9.2 K/uL (4.8-10.8)
[2018-10-20] MEDS: ALBUTEROL SULFATE/IPRATROPIU 3 ML SOL IH SCH ×3 (08:39→20:08)
[2018-10-20] MEDS: ZINC SULF 220 MG CAP GT SCH (08:49)
[2018-10-20] MEDS: CITALOPRAM 20 MG TAB GT SCH (08:49)
[2018-10-20] MEDS: LACTOBACILLUS RHAMNOSUS GG 1 EACH CAP GT SCH (08:49)
[2018-10-20] MEDS: FAMOTIDINE 20 MG TAB GT SCH ×2 (08:49→20:53)
[2018-10-20] MEDS: MAGNESIUM OXIDE 400 MG TAB GT SCH (08:49)
[2018-10-20] MEDS: BACLOFEN 10 MG TAB PO SCH ×4 (08:49→20:53)
[2018-10-20] MEDS: CALCIUM CARB/VIT-D 500 MG/200 IU 1 TAB GT SCH (08:50)
[2018-10-20] MEDS: MULTIVITAMIN/MINERALS 15 ML UDBTL GT SCH (08:50)
[2018-10-20] MEDS: AMIODARONE 200 MG TAB PO SCH ×2 (08:50→20:54)
[2018-10-20] MEDS: SODIUM PHOS / POTASSIUM PHOS 1 PKT PDR GT SCH (08:50)
[2018-10-20] MEDS: FERROUS SULFATE 300 MG/5 ML UDC GT SCH (08:50)
[2018-10-20] MEDS: ASCORBIC ACID 500 MG/5 ML ORASYR GT SCH (08:50)
[2018-10-20] MEDS: MORPHINE SULFATE 2 MG/ML SYR IVP PRN (08:52)
--- NOTE | 2018-10-20 08:55 | NUR ---
CHECKED GTUBE USING SWOOSH. SWOOSH HEARD. NO RESIDUAL. CRUSHED AND ADMINISTERED MEDS. FLUSHED BEFORE AND AFTER MED ADMINISTRATION. PRN PAIN MED GIVEN, PER DR SOTO PATIENT EDUCATED ON SIDE EFFECTS. TOLERATED WELL. WILL CONTINUE TO MONITOR THE PATIENT.
--- NOTE | 2018-10-20 09:40 | NUR ---
BLOOD TRANSFUSION IS DONE. NO REACTION NOTED. WILL CONTINUE TO MONITOR THE PATIENT.
[2018-10-20 09:58] LABS: ANION GAP 9.2 (8-16); CARBON DIOXIDE 30.6 mmol/L (21-32); POTASSIUM 4.8 mmol/L (3.5-5.1)
[2018-10-20 09:59] LABS: CREATININE 0.5 mg/dL (0.6-1.3)
--- NOTE | 2018-10-20 10:10 | NUR ---
CONTACTED [facility] AT [phone], SPOKE TO NABILA. SHE STATED THAT [facility] CLIENT RELATIONS ASSOCIATE IS IN THE MEETING AT THIS TIME. SHE PROVIDED ME OF THE ADMISSIONS DEPARTMENT'S DIRECT PHONE NUMBER. WILL FOLLOW UP.
[2018-10-20] MEDS ORDERED: AMIO200T10 PO (10:24)
[2018-10-20] MEDS ORDERED: BACL10TA4 PO (10:24)
[2018-10-20 10:57] LABS: MAGNESIUM 1.5 mg/dL (1.8-2.4); PHOSPHORUS 4.3 mg/dL (2.5-4.9)
--- NOTE | 2018-10-20 11:00 | NUR ---
PATIENT IN NO DISTRESS. WILL CONTINUE TO MONITOR
--- NOTE | 2018-10-20 11:11 | NUR ---
CONTACTED [facility], ABLE TO SPEAK TO JEAN-CLAUDE. SHE STATED THEY ARE JUST WAITING FOR CONFIRMATION OF MEDICAL COVERAGE. SHE ALSO STATED WHEN THE PATIENT'S DAUGHTERS TOURED THE FACILITY THEY STATED THAT MEDICAL APPLICATION WAS ON HOLD. CONTACTED ROBINA CHAUDHARY AT [phone] REGARDING MEDICAL INSURANCE. SHE STATED THAT WHEN THE PATIENT WAS IN [place] THEY INITIATED THE APPLICATION PROCESS BUT NEVER HEARD ANYTHING BACK FROM THE FACILITY AND THEY DID NOT GET THE CHANCE TO FOLLOW UP. PER REJI COLEMAN, SHE CONTACTED JUANY CRANFORD AND SPOKE TO DUY AND SHE STATED THAT SOMEBODY FROM THE SNF WILL FAX US THE INFO. JIM/REJI WILL FOLLOW UP.
[2018-10-20] MEDS ORDERED: HYDR-5092 PO (11:18)
--- NOTE | 2018-10-20 11:57 | NUR ---
Deck Mate Note: Late entry for 10/19/18: Anderson Reddy from [facility] , patient has [employer] coverage and someone from their business office dept will fax me proof of [employer] coverage today.
--- NOTE | 2018-10-20 12:01 | NUR ---
Forensic Chemist Note: I called and spoke with Maureen from [facility] , I told her I have not received proof of [employer] coverage. She apologized and stated she misinformed me yesterday, patient does not have Med[employer] coverage, Basic Combatant Swimmer Cathleen made aware.
--- NOTE | 2018-10-20 12:45 | NUR ---
ADMINISTERED MEDS. PATIENT TOLERATED WELL. WILL CONTINUE TO MONITOR
[2018-10-20 13:47] LABS: BASOPHILS % (AUTO) 0.3 % (0.0-2.0); EOSINOPHILS # (AUTO) 1.1 K/uL (0-0.4); EOSINOPHILS % (AUTO) 10.1 % (0.0-4.0); HEMATOCRIT 26.6 % (36-48); HEMOGLOBIN 8.7 g/dL (12.0-16.0); LYMPHOCYTES # (AUTO) 1.4 K/uL (2.5-16.5); LYMPHOCYTES % (AUTO) 12.9 % (20.5-51.1); MEAN CORPUSCULAR HEMOGLOBIN 28 pg (27-31); MEAN CORPUSCULAR HGB CONC 33 g/dL (33-37); MONOCYTES # (AUTO) 1.1 K/uL (0.8-1.0); MONOCYTES % (AUTO) 9.8 % (1.7-9.3); NEUTROPHILS # (AUTO) 7.2 K/uL (1.8-7.7); NEUTROPHILS % (AUTO) 66.9 % (42.2-75.2); PLATELET COUNT (AUTO) 281 K/uL (140-450); RED BLOOD CELL COUNT(AUTO) 3.09 MIL/uL (4.20-5.40); RED CELL DISTRIBUTION WIDTH 15.5 % (11.6-13.7); WHITE BLOOD COUNT (AUTO) 10.8 K/uL (4.8-10.8)
--- NOTE | 2018-10-20 13:47 | NUR ---
PATIENT GOT SUCTIONED. SHE WANTS RT. WILL CALL RT.
[2018-10-20] MEDS: GAUZE TP SCH (13:48)
--- NOTE | 2018-10-20 14:56 | NUR ---
NEW FEEDING STARTED [facility] AT [address] W H20 FLUSH 100 Q 6HRS. PATIENT TOLERATING WELL. NO RESIDUAL AT THIS TIME
--- NOTE | 2018-10-20 14:57 | NUR ---
CONTACTED PATIENT'S DAUGHTER ROBINA CHAUDHARY AT [phone] REGARDING PLACEMENT. SHE STATED THAT HER SISTER ALLIE IS THE ONE TAKING CARE OF PATIENT'S FINANCES. CONTACTED ALLIE JIMENEZ AT [phone], SHE STATED THAT THEY TRIED TO APPLY FOR MEDICAL BUT THE PATIENT DID NOT QUALIFY BECAUSE SHE HAS MONEY IN THE BANK AND CARS. SHE SAID THEY ARE IN THE PROCESS OF LIQUIDATING OR TRANSFERRING THEIR MOTHER'S ASSETS AT THIS TIME. CONTACTED WHIT CONSTRUCTION SPECIALIST, MADE HER AWARE OF THE SITUATION. SHE STATED SHE WILL REFER IT TO [facility]. CM/SW WILL FOLLOW UP.
--- NOTE | 2018-10-20 16:00 | NUR ---
MET WITH THE PATIENT AT THE BEDSIDE. I EXPLAINED TO HER THAT BECAUSE SHE DOES NOT HAVE A SECONDARY INSURANCE [facility] IS NOT ABLE TO ACCEPT HER. I ALSO CONFIRMED IT WITH HER WHAT ALLIE, HER DAUGHTER TOLD ME ABOUT BEING THE ONE TAKING CARE OF HER FINANCES. I ALSO TOLD HER THAT [facility] WILL ACCEPT HER IF SHE IS WILLING TO PAY $750/DAY TOTALLING TO $22,500/30 DAYS. 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 I TOLD HER I WILL DISCUSS THIS WITH ALLIE. CONTACTED PATIENT'S DAUGHTER ALLIE AND INFORMED HER OF WHAT THE PATIENT SAID. SHE STATED THAT "SHE HAS ENOUGH, BUT IF WE GET ALL HER MONEY, WHAT ARE WE GOING TO USE TO PAY FOR THE HOUSE?" I ASKED HER IF SHE CAN COME DOWN HERE AND WILL DISCUSS THIS IN FRONT OF THE PATIENT. SHE STATED THAT SHE IS SICK RIGHT NOW. I TOLD HER I WILL CALL AGAIN TOMORROW TO FOLLOW UP.
--- NOTE | 2018-10-20 16:00 | NUR ---
PATIENT IN NO DISTRESS. WILL CONTINUE TO MONITOR THE PATIENT
--- NOTE | 2018-10-20 17:10 | NUR ---
ADMINISTERED MEDS. EDUCATED SIDE EFFECTS TO THE PATIENT. PATIENT TOLERATING WELL. WILL CONTINUE TO MONITOR THE PATIENT
--- NOTE | 2018-10-20 19:10 | NUR ---
gave bedside report to night stocker nurse. patient endorsed in stable condition
--- NOTE | 2018-10-20 19:18 | NUR ---
RECEIVED FROM AM RN IN BED. TOTAL CARE. AWAKE AND ALERT AND ABLE TO VERBALIZE NEEDS WELL. PT. WITH GT FEEDING, WIGGINS CATHETER IN PLACE AND TRACH TO VENT. TELEMETRY MONITORING. CALL LIGHT WITH IN REACH . CENTRAL LINE TO RIJ PATENT AND NO INFILTRATION. ENCOURAGED TO CALL FOR ANY HELP SHE MAY NEED. TOTAL CARE/QUADRIPLEGIC. WILL BE TURNED Q 2H.
--- NOTE | 2018-10-20 21:06 | NUR ---
ALL MEDICATIONS ADMINISTERED PER GT . TOLERATED WELL. NO COMPLAINTS DONE. PT. ATTENDED BY CASTING CLEANER IN TURNING. ABLE TO VERBALIZE NEEDS WELL. AFEBRILE. MD MICHELLE IN HERE TO SEE PT.
--- NOTE | 2018-10-21 | NUR ---
SLEEPING AT THIS TIME. ABLE TO OPEN EYES EASILY WHEN TOUCHED. ABLE TO VERBALIZE SIMPLE NEEDS. CALL LIGHT WITH IN REACH.
--- NOTE | 2018-10-21 02:08 | NUR ---
GT RESIDUAL AT THIS TIME 20 ML. NO NOTED N/V. HOB UP 30 DEGREES FOR ASPIRATION PRECAUTION. SLEEPING WELL. NO RESTLESSNESS.
[2018-10-21 04:16] VITALS: BP 122/62
[2018-10-21] MEDS: MIDODRINE 5 MG TAB PO SCH ×3 (05:12→20:49)
[2018-10-21] MEDS: HYDROcodone/APAP 5/325 MG 1 TAB TAB PO SCH ×3 (05:12→17:22)
--- NOTE | 2018-10-21 06:08 | NUR ---
SLEPT WELL THIS SHIFT. TURNED Q 2H. TOTAL CARE. PT. ABLE TO VERBALIZE NEEDS WELL IN ARMENIAN. ABLE TO USE CALL LIGHT FOR HELP. PILLOW SUPPORT TO PRESSURE AREAS.
--- NOTE | 2018-10-21 07:05 | NUR ---
RECEIVED BEDSIDE REPORT FROM FLAKE CUTTER OPERATOR NURSE. PATIENT IS AWAKE, ALERT AND ORIENTEDX3. NO SIGNS OF DISTRESS ON TRACH TO VENT. VENT SETTINGS ARE FIO2 28 VT 450 RATE 14 FLOW 50 PEEP 5 PMAX 45. PATIENT IS BEDBOUND. FALL RISK PROTOCOL IN PLACE. SKIN HAS MULTIPLE WOUNDS, HEEL PROTECTOR AND WOUND CARE BED IN PLACE. RIJ TRIPLE LUMEN CATH, CLEAN, DRY AND INTACT. GTUBE IN PLACE INFUSING JEVITY AT 70 W H20 FLUSH [address] Q6H. COLOSTOMY BAG IN PLACE, WIGGINS IN PLACE. BOTH PATENT. BED IN LOW POSITION. CALL LIGHT WITHIN REACH. WILL CONTINUE TO MONITOR THE PATIENT.
[2018-10-21] MEDS: ALBUTEROL SULFATE/IPRATROPIU 3 ML SOL IH SCH ×3 (07:30→19:45)
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
[2018-10-21 07:36] LABS: ANION GAP 8.6 (8-16); CARBON DIOXIDE 29.9 mmol/L (21-32); CREATININE 0.5 mg/dL (0.6-1.3); POTASSIUM 4.5 mmol/L (3.5-5.1)
[2018-10-21 08:00] VITALS: BP 140/71
--- NOTE | 2018-10-21 08:30 | NUR ---
CONTACTED PATIENT'S DAUGHTER ALLIE AT [phone] TO FOLLOW UP IF SHE IS ABLE TO COME DOWN HERE TODAY, NO ANSWER. LEFT MESSAGE. WILL FOLLOW UP.
[2018-10-21] MEDS: MULTIVITAMIN/MINERALS 15 ML UDBTL GT SCH (09:34)
[2018-10-21] MEDS: ASCORBIC ACID 500 MG/5 ML ORASYR GT SCH (09:35)
[2018-10-21] MEDS: AMIODARONE 200 MG TAB PO SCH ×2 (09:35→20:48)
[2018-10-21] MEDS: FERROUS SULFATE 300 MG/5 ML UDC GT SCH (09:35)
[2018-10-21] MEDS: ZINC SULF 220 MG CAP GT SCH (09:35)
[2018-10-21] MEDS: CITALOPRAM 20 MG TAB GT SCH (09:35)
[2018-10-21] MEDS: MAGNESIUM OXIDE 400 MG TAB GT SCH (09:36)
[2018-10-21] MEDS: LACTOBACILLUS RHAMNOSUS GG 1 EACH CAP GT SCH (09:36)
[2018-10-21] MEDS: BACLOFEN 10 MG TAB PO SCH ×4 (09:36→20:49)
[2018-10-21] MEDS: FAMOTIDINE 20 MG TAB GT SCH ×2 (09:36→20:48)
[2018-10-21] MEDS: SODIUM PHOS / POTASSIUM PHOS 1 PKT PDR GT SCH (09:37)
[2018-10-21] MEDS: FLUTICASONE NASAL 50 MCG/ACTUATION 16 GM BTL NS SCH (09:37)
[2018-10-21] MEDS: CALCIUM CARB/VIT-D 500 MG/200 IU 1 TAB GT SCH (09:37)
--- NOTE | 2018-10-21 09:41 | NUR ---
CHECKED GTUBE PLACEMENT USING SWOOSH. SWOOSH HEARD. NO RESIDUAL. CRUSHED AND ADMINISTERED MEDS. FLUSHED BEFORE AND AFTER. PATIENT TOLERATED WELL. EDUCATED ON SIDE EFFECTS. WILL CONTINUE TO MONITOR THE PATIENT
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
--- NOTE | 2018-10-21 10:31 | NUR ---
SW visited patient to confirm that patient is agreeable to paying for her stay at [facility]. REJI was accompanied by JIM Connolly as a witness. SW/CM will follow up as needed.
--- NOTE | 2018-10-21 11:00 | NUR ---
PATIENT IN NO DISTRESS. WILL CONTINUE TO MONITOR
--- NOTE | 2018-10-21 11:41 | NUR ---
RECEIVED A CALL FROM JEAN-CLAUDE OF [facility], SHE STATED THAT PATIENT'S DAUGHTER ALLIE IS NOT GOING TO BE ABLE TO DROP OFF THE CHECK TODAY AND THEY CANNOT ACCEPT THE PATIENT IF THEY DO NOT RECEIVE THE PAYMENT. SHE REQUESTED TO FAX OVER TO THEM THE WOUND ASSESSMENT AT [phone], AND STATED WILL HAVE THEIR WOUND NURSE REVIEW IT. WOUND ASSESSMENT FAXED TO THE PROVIDED NUMBER. CONTACTED PATIENT'S DAUGHTER ALLIE, SHE CONFIRMED THAT SHE DOES NOT HAVE ANYBODY TO DROP THE CHECK OFF TO [facility] BECAUSE SHE IS SICK. SHE STATED THAT SHE WILL BE ABLE TO DO IT TOMORROW MORNING.
--- NOTE | 2018-10-21 11:51 | NUR ---
NO EVIDENCE OF RESPIRATORY DISTRESS NOTED GOO CHEST RISE DEEP TRACHEAL SUCTION FOR SMALL THICK PALE YELLOW SECRETIONS AIRWAY PATENT
[2018-10-21 12:00] VITALS: BP 123/62
[2018-10-21] MEDS: GAUZE TP SCH (12:43)
[2018-10-21] MEDS: THERAHONEY GEL 42.5 GM TP SCH (12:43)
--- NOTE | 2018-10-21 12:50 | NUR ---
CHECKED FOR GTUBE PLACEMENT USING SWOOSH. SWOOSH HEARD. 5ML RESIDUAL. CRUSHED AND ADMINISTERED MEDS. FLUSHED BEFORE AND AFTER. PATIENT TOLERATED WELL. WILL CONTINUE TO MONITOR THE PATIENT
--- NOTE | 2018-10-21 13:56 | NUR ---
FRIENDS AT BEDSIDE. WILL CONTINUE TO MONITOR THE PATIENT. RT AT BEDSIDE TO DEFLATE CUFF SO FRIENDS CAN SPEAK TO THE PATIENT
--- NOTE | 2018-10-21 13:57 | NUR ---
AWAKE AND ALERT CONVERSING "MOUTHING WORDS" WITH FRIENDS AT BEDSIDE NO RESPIRATORY DISTRESS NOTED EQUAL CHEST RISE DEEP TRACHEAL SUCTION FOR MODERATE THIN PALE YELLOW SECRETIONS AIRWAY PATENT
--- NOTE | 2018-10-21 14:55 | NUR ---
PATIENT IN NO DISTRESS. WILL CONTINUE TO MONITOR THE PATIENT
--- NOTE | 2018-10-21 15:57 | NUR ---
NO DISTRESS NOTED EQUAL CHEST RISE AIRWAY PATENT
[2018-10-21 16:00] VITALS: BP 133/74
--- NOTE | 2018-10-21 16:00 | NUR ---
PATIENT IN NO DISTRESS. WILL CONTINUE TO MONITOR
--- NOTE | 2018-10-21 17:22 | NUR ---
ADMINISTERED MEDS. PATIENT TOLERATED WELL
[2018-10-21 17:25] VITALS: BP 133/74
--- NOTE | 2018-10-21 17:25 | NUR ---
STABLE NO DISTRESS NOTED EQUAL CHEST RISE DEEP TRACHEAL SUCTIO FOR MODERATE THICK PALE YELLOW SECRETIONS AIRWAY PATENT
--- NOTE | 2018-10-21 19:05 | NUR ---
GAVE BEDSIDE REPORT FROM WAREHOUSE STOCK CLERK NURSE. PATIENT ENDORSED IN STABLE CONDITION
--- NOTE | 2018-10-21 19:25 | NUR ---
RECEIVED BEDSIDE REPORT FROM DAY SHIFT NURSE. PATIENT IS AWAKE, ALERT, AND COOPERATIVE. RESPIRATION EVEN UNLABORED ON TRACH TO VENT. NO DISTRESS NOTED. SKIN IS WARM AND DRY. MULTIPLE DECUBITUS ULCER NOTED. RIGHT IJ CENTRAL LINE TRIPLE LUMEN PATENT AND INTACT. DENIES PAIN. COLOSTOMY BAG NOTED. G-TUBE FEEDING RUNNING AT 7ML/HR. WIGGINS CATHETER DRAINING YELLOW URINE. FAMILY AT BEDSIDE. PLAN OF CARE WAS DISCUSSED. ALL SAFETY MEASURES IN PLACE. BED IS AT LOW POSITION. CALL LIGHT WITHIN REACH. WILL CONTINUE TO MONITOR.
--- NOTE | 2018-10-21 19:45 | NUR ---
RECEIVED TRACH PT WITH A SHILEY 6 TRACH ON VENT. SETTINGS AC/VC 14, VT 450, PEEP 5 AND FIO2 28%. PT IS AWAKE AT THIS TIME NOT IN ANY DISTRESS. TRACH IS SECURE WITH A PATENT AIRWAY. VENT IS PLUGGED INTO A RED OUTLET WITH ALARMS ON AND FUNCTIONING. AMBU IS AT PT BEDSIDE. WILL CONTINUE TO MONITOR.
[2018-10-21 20:00] VITALS: BP 120/60
--- NOTE | 2018-10-21 20:00 | NUR ---
INITIAL ASSESSMENT DONE. VITALS WERE TAKEN. CHECKED G-TUBE RESIDUAL AND OBTAINED 5CC. WILL CONTINUE TO MONITOR.
--- NOTE | 2018-10-21 21:24 | NUR ---
PATIENT HR 160. TOOK VITALS BP 120/[address] NOLASCO[address] WILL CONTINUE TO MONITOR.
[2018-10-21] MEDS: LORazepam 2 MG/ML VIAL IM/IVP PRN (21:30)
--- NOTE | 2018-10-21 21:30 | NUR ---
DR. NOLASCO AT BEDSIDE ASSESSING PATIENT. PATIENT SEEMS ANXIOUS. HEART RATE IS AT 159-161. WILL CONTINUE TO MONITOR.
--- NOTE | 2018-10-21 21:32 | NUR ---
RECEIVED ORDER OF ATIVAN 1MG FROM DR. NOLASCO. WILL CONTINUE TO MONITOR.
[2018-10-21] MEDS ORDERED: NACL 0.9% 500 ML IV ONE (22:05)
--- NOTE | 2018-10-21 22:05 | NUR ---
CHECKED PATIENT. PATIENT HEART RATE SVT RANGING 160-163BPM. NOTIFIED DR. NOLASCO. WILL CONTINUE TO MONITOR.
--- NOTE | 2018-10-21 22:07 | NUR ---
RETAKE VITALS. PATIENT BP 115/[address] NOLASCO AT BEDSIDE. WILL CONTINUE TO MONITOR.
[2018-10-21] MEDS ORDERED: LORazepam 2 MG/ML VIAL IVP SCH (23:00)
[2018-10-21] MEDS ORDERED: diphenhydrAMINE 50 MG/ML VIAL IVP SCH (23:05)
--- NOTE | 2018-10-21 23:18 | NUR ---
DR. NOLASCO PUT AN ORDER FOR BENADRYL AND ATIVAN. ADMINISTERED. PATIENT HR STILL HIGH RANGING 157-160. WILL CONTINUE TO MONITOR.
--- NOTE | 2018-10-21 23:52 | NUR ---
VITALS WERE TAKEN. PATIENT HEART RATE STILL RANGING 157-163. DR. NOLASCO AT BEDSIDE. WILL CONTINUE TO MONITOR.
[2018-10-21] MEDS ORDERED: METOPROLOL 5 MG/5 ML VIAL IVP SCH (23:56)
[2018-10-22] VITALS (11 sets, daily range): BP systolic 102–127; BP diastolic 50–77
--- NOTE | 2018-10-22 00:24 | NUR ---
LOPRESSOR IVP 5MG GIVEN PER DR. NOLASCO ORDER. PATIENT HEART RATE 163 BP 124/77. WILL CONTINUE TO MONITOR.
--- NOTE | 2018-10-22 00:54 | NUR ---
RECHECKED PATIENT. PATIENT HEART RATE STILL IN THE HIGH 150'S. WILL CONTINUE TO MONITOR.
[2018-10-22] MEDS: THERAHONEY GEL 42.5 GM TP SCH (01:09)
[2018-10-22] MEDS: NACL 0.9% 1,000 ML IV SCH ×2 (01:20→09:34)
[2018-10-22] MEDS ORDERED: METOPROLOL 5 MG/5 ML VIAL IVP SCH (01:35)
[2018-10-22] MEDS ORDERED: METOPROLOL 25 MG TAB PO SCH (01:35)
--- NOTE | 2018-10-22 01:40 | NUR ---
ADMINISTERED ANOTHER DOSE OF LOPRESSOR 5MG IV PUSH AND LOPRESSOR GT 12.5MG. PER DR. NOLASCO ORDER. WILL CONTINUE TO MONITOR.
[2018-10-22] MEDS ORDERED: AMIODARONE 150 MG/3 ML VIAL IV ONE (02:17)
[2018-10-22] MEDS ORDERED: AMIODARONE 450 MG/9 ML VIAL IV ONE (02:17)
--- NOTE | 2018-10-22 02:30 | NUR ---
AFTER ALL TREATMENT WAS GIVEN PATIENT HEART RATE STILL HIGH RANGING 155-160'S. PATIENT WILL BE TRANSFER TO ICU FOR CLOSE OBSERVATION.
--- NOTE | 2018-10-22 02:45 | NUR ---
ENDORSED PATIENT TO [facility] ICU NURSE FOR CONTINUITY OF CARE.
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
[2018-10-22] MEDS ORDERED: AMIODARONE 150 MG in DEXTROSE 5% 100 ML IV SCH (03:00)
[2018-10-22] MEDS ORDERED: AMIODARONE 450 MG in DEXTROSE 5% 250 ML IV SCH (03:00)
--- NOTE | 2018-10-22 03:15 | NUR ---
RESUMED CARE FOR PT. REPORT RECEIVED. PT'S HR GOES FROM 110S TO 140S. OTHER THAN THE HR, VS STABLE. PT AWAKE. ABLE TO MAKE SIMPLE NEEDS KNOWN. PT ABLE TO MOUTH WORDS. TRACH TO VENT WITH SETTINGS: FIO2 28%, TV 450, RR14, AND PEEP 5. CHEST RISE SYMMETRIC. RESPIRATIONS EVEN AND UNLABORED. NO SOB. LUNG SOUNDS CLEAR. S1+S2 HEARD. PULSES ARE PALPABLE. ABDOMEN ROUND, SOFT AND NONDISTENDED. VS ACTIVE IN ALL QUADRANTS. PT HAS GTUBE IN PLACE. COLOSTOMY BAG. WIGGINS CATHETER IN PLACE. PT HAS RIGHT IJ CENTRAL LINE IN PLACE. DRESSING CLEAN, DRY AND INTACT. PT HAS THE AMIODARONE DRIP RUNNING AT 33ML/HR. ALL SAFETY PRECAUTIONS ARE IN PLACE. BED AT LOW POSSIBLE POSITION.
[2018-10-22] MEDS ORDERED: MAG SULF 2000 MG/WATER PREMIX 50 ML IV SCH (03:30)
--- NOTE | 2018-10-22 03:45 | NUR ---
PT NOTED TO HAVE CONVERTED TO SINUS BRADYCARDIA. HR WAS 57. CALLED RESIDENT DOCTORS AND SPOKE WITH DR. HOWE. RECEIVED AN ORDER TO STOP AMIODARONE DRIP AT THIS TIME. PT REMAINS SB. VS STABLE.
--- NOTE | 2018-10-22 04:42 | NUR ---
CALLED DR. HOWE TO CLARIFY THE MAGNESIUM ORDER. PER DR. HOWE GIVE ONLY 2 GRAMS (1 BAG) OF MAGNESIUM AND HAVE MAGNESIUM BE CHECK WITH MORNING LABS FIRST. THEN IT WILL BE DETERMINED IF ANOTHER MAGNESIUM IS NEEDED. TUBE FEEDING TO BE RESUMED WELL.
[2018-10-22] MEDS: MIDODRINE 5 MG TAB PO SCH ×2 (05:59→12:33)
--- NOTE | 2018-10-22 05:59 | NUR ---
MEDICATION SCHEDULED, MIDODRINE, NOT GIVEN. ASKED PROFESSOR OF BUSINESS BUT MEDICATION NOT AVAILABLE. TO NOTIFY
--- NOTE | 2018-10-22 06:58 | NUR ---
RECEIVED TRACH PT ON VENT WITH A SHILEY 6 TRACH. SETTINGS AC/VC 14, VT 450. PEEP 5 AND FIO2 28%. PT IS ASLEEP BUT WAKES UP WHEN SPOKEN TO AND IS ALERT. TRACH IS SECURE WITH A PATENT AIRWAY. VENT ALARMS ON AND FUNCTIONING. VENT IS PLUGGED INTO A RED OUTLET. AMBU BAG IS PRESENT NEAR BEDSIDE. WILL CONTINUE TO MONITOR.
[2018-10-22] MEDS: ALBUTEROL SULFATE/IPRATROPIU 3 ML SOL IH SCH (06:59)
--- NOTE | 2018-10-22 07:10 | NUR ---
RECEIVED PT BEDSIDE REPORT FROM ROUTE SALES DELIVERY DRIVER RNPANKAJ. PT OPENS EYES TO NAME AND ABLE TO MAKE NEEDS KNOWN. TRACH TO VENT, SETTINGS AC/VC RR14, VT 450. PEEP 5 AND FIO2 28%. SB ON MONITOR. LUNG SOUNDS RHONCHI. BOWEL SOUNDS ACTIVE. COLOSTOMY BAG IN PLACE, DRAINING BROWN LIQ STOOL. WIGGINS CATH IN PLACE, DRAINING CLEAR YELLOW URINE. RIGHT IJ TRIPLE LUMEN, INFUSING NS AT 120ML/HR. WOUND DRESSING CLEAN AND INTACT. PT IS ON AIR MATTRESS BED. CALL LIGHT WITHIN REACH. WILL CONTINUE TO MONITOR.
[2018-10-22] MEDS ORDERED: MAG SULF 2000 MG/WATER PREMIX 100 ML IV ONE (08:05)
[2018-10-22] MEDS ORDERED: MAGNESIUM SULFATE 4GM in STERILE WATER 100 ML PREMIX IV SCH (08:30)
[2018-10-22] MEDS: MULTIVITAMIN/MINERALS 15 ML UDBTL GT SCH (08:47)
[2018-10-22] MEDS: BACLOFEN 10 MG TAB PO SCH ×2 (08:48→12:28)
[2018-10-22] MEDS: CALCIUM CARB/VIT-D 500 MG/200 IU 1 TAB GT SCH (08:48)
[2018-10-22] MEDS: FAMOTIDINE 20 MG TAB GT SCH (08:48)
[2018-10-22] MEDS: FERROUS SULFATE 300 MG/5 ML UDC GT SCH (08:48)
[2018-10-22] MEDS: LACTOBACILLUS RHAMNOSUS GG 1 EACH CAP GT SCH (08:48)
[2018-10-22] MEDS: AMIODARONE 200 MG TAB PO SCH (08:48)
[2018-10-22] MEDS: ZINC SULF 220 MG CAP GT SCH (08:52)
[2018-10-22] MEDS: ASCORBIC ACID 500 MG/5 ML ORASYR GT SCH (08:52)
[2018-10-22] MEDS: MAGNESIUM OXIDE 400 MG TAB GT SCH (08:54)
[2018-10-22] MEDS: SODIUM PHOS / POTASSIUM PHOS 1 PKT PDR GT SCH (09:15)
[2018-10-22] MEDS: FLUTICASONE NASAL 50 MCG/ACTUATION 16 GM BTL NS SCH (09:16)
[2018-10-22] MEDS: CITALOPRAM 20 MG TAB GT SCH (09:17)
--- NOTE | 2018-10-22 09:20 | NUR ---
SPOKE WITH DR MITCHELL OVER THE PHONE, MADE HER AWARE PT MG1.4 AND PT RECEIVED 2G MAG RIDER LAST NIGHT. ASKED IF SHE WANTS TO START 4G MAG RIDER OR WAIT TILL THE LAB RESULT IS BACK. DR MITCHELL IS OK WITH STARTING 4G OF MAG RIDER NOW. SHE SAID IF PT IS MAG IS LOW, SHE MIGHT GO INTO SVT OR AFIB.
--- NOTE | 2018-10-22 09:25 | NUR ---
CONTACTED PATIENT'S DAUGHTER ALLIE, SHE STATED SHE WILL BE DROPPING OFF THE CHECK TO [facility] AFTER SHE DROPS HER KIDS OFF TO SCHOOL. Addendum: 10/22/18 at 1022 by Cathleen Bergeron CM CONTACTED [facility], NO ANSWER. LEFT MESSAGE
[2018-10-22 10:16] LABS: BASOPHILS # (AUTO) 0.1 K/uL (0.00-0.22); EOSINOPHILS # (AUTO) 0.5 K/uL (0-0.4); EOSINOPHILS % (AUTO) 4.3 % (0.0-4.0); HEMATOCRIT 22.3 % (36-48); HEMOGLOBIN 7.3 g/dL (12.0-16.0); LYMPHOCYTES # (AUTO) 2.2 K/uL (2.5-16.5); LYMPHOCYTES % (AUTO) 20.3 % (20.5-51.1); MEAN CORPUSCULAR HEMOGLOBIN 28 pg (27-31); MEAN CORPUSCULAR HGB CONC 33 g/dL (33-37); MEAN CORPUSCULAR VOLUME 86.3 fL (80-94); MONOCYTES % (AUTO) 9.7 % (1.7-9.3); NEUTROPHILS # (AUTO) 6.9 K/uL (1.8-7.7); NEUTROPHILS % (AUTO) 64.7 % (42.2-75.2); PLATELET COUNT (AUTO) 379 K/uL (140-450); RED BLOOD CELL COUNT(AUTO) 2.58 MIL/uL (4.20-5.40); RED CELL DISTRIBUTION WIDTH 15.7 % (11.6-13.7); WHITE BLOOD COUNT (AUTO) 10.6 K/uL (4.8-10.8)
--- NOTE | 2018-10-22 10:26 | NUR ---
RECEIVED A CALL FROM [facility] PATIENT WILL GO TO ROOM 251B UNDER DR. BARRERA. Addendum: 10/22/18 at 1047 by Cathleen Bergeron CM CONTACTED KIMBERLY FERNANDEZ AT [phone] REGARDING IF THE AUTH PROVIDED ARE STILL ACTIVE, NO ANSWER. LEFT MESSAGE.
[2018-10-22 10:31] LABS: ANION GAP 9.2 (8-16); CARBON DIOXIDE 29.1 mmol/L (21-32); CREATININE 0.5 mg/dL (0.6-1.3); POTASSIUM 4.3 mmol/L (3.5-5.1)
[2018-10-22 10:32] LABS: MAGNESIUM 1.9 mg/dL (1.8-2.4); PHOSPHORUS 4.2 mg/dL (2.5-4.9)
--- NOTE | 2018-10-22 10:50 | NUR ---
CONTACTED KIMBERLY FERNANDEZ AT [phone] TO FOLLOW UP FOR AUTH, NO ANSWER. LEFT MESSAGE.
--- NOTE | 2018-10-22 11:28 | NUR ---
PT ASLEEP AT THIS TIME NOT IN ANY DISTRESS. WILL CONTINUE TO MONITOR.
--- NOTE | 2018-10-22 11:46 | NUR ---
PER LATISHA FERNANDEZ (COVERING FOR KIMBERLY) [facility], MAY USE THE SAME AUTH FOR TERRACINA AND ELISHA. JEAN-CLAUDE OF [facility], MADE AWARE. Addendum: 10/22/18 at 1154 by Cathleen Bergeron CM FACILITY [facility] [phone] AND TRANSPORT AUTH [facility] [id number].
[2018-10-22] MEDS ORDERED: HYDROcodone/APAP 5/325 MG 1 TAB TAB PO SCH (12:00)
--- NOTE | 2018-10-22 12:04 | NUR ---
CONTACTED [facility] AT [phone], ABLE TO SPEAK TO BROCK. PROVIDED HER WITH THE TRANSPORT AUTH [id number]. TRANSPORT HAD BEEN SET UP FOR [employer] SALES CONSULT[employer]. CHARGE NURSE LILLIAN LEVI AND PATIENT'S DAUGHTER ALLIE MADE AWARE.
--- NOTE | 2018-10-22 12:12 | NUR ---
CALLED [phone], NURSE HUSSEIN SAID PT'S NAME IS NOT ON HIS ADMISSION LIST, WILL CALL ME BACK LATER. I SPOKE WITH OUR DRAFTER MECHANICAL SARA, MADE HER AWARE OF THE SITUATION.
--- NOTE | 2018-10-22 13:09 | NUR ---
CONTACTED LILLIAN, MADE HER AWARE THAT THE NURSE HAVE BEEN CONTACTING THE FACILITY TO GIVE REPORT AND THEY HAVE BEEN PUTTING HIM ON HOLD. SHE STATED JUST GO AHEAD AND TRANSFER THE PATIENT OUT AND CALL AGAIN AND GIVE REPORT. CHARGE NURSE AMITA MADE AWARE.
--- NOTE | 2018-10-22 13:10 | NUR ---
CALLED [facility] AT 1230, ASKED FOR NURSE RECEIVING REPORT. HAS BEEN PLACED ON HOLD FOR MORE THAN 20MINS. AND THE [facility] TRANSPORT PERSONNELS ALREADY HERE. ASKED SARA BURRING MACHINE OPERATOR WHAT TO DO. SARA SAID TO TRANSFER AND GIVE REPORT LATER.
[2018-10-22] MEDS: LORazepam 2 MG/ML VIAL IM/IVP PRN (13:18)
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
--- NOTE | 2018-10-22 14:19 | NUR ---
CALLED [phone], TRY TO GIVE NURSE REPORT. NO ONE ANSWERING, AUTOMATICALLY DISCONNECTED AFTER 7 OR 8 RINGS.
--- NOTE | 2018-10-22 14:51 | NUR ---
CALLED [facility] TO CATTLE KILLER THE AIR MATTRESS, CONFIRMATION NUMBER IS [id number].
--- NOTE | 2018-10-22 17:20 | NUR ---
[facility]. REPORT GIVEN.
== END 2018-10-22 13:23 | DRG 870 ==
LOC: MED 19:12 → MTU 22:04 → MIC 10-09 00:37 → MTU 10-13 07:53 → MIC 10-22 02:30
PROVIDERS: ADMIT General Practice; ATTEND General Practice
PROC: 5A1955Z Respiratory Ventilation, Greater than 96 Consecutive Hours (ICD-10-PCS; principal; 2018-10-08)
PROC: 30233N1 Transfusion of Nonautologous Red Blood Cells into Peripheral Vein, Percutaneous Approach (ICD-10-PCS; 2018-10-08)
PROC: 02HV33Z Insertion of Infusion Device into Superior Vena Cava, Percutaneous Approach (ICD-10-PCS; 2018-10-09)
PROC: B548ZZA Ultrasonography of Superior Vena Cava, Guidance (ICD-10-PCS; 2018-10-09)
DX: A41.9 Sepsis, unspecified organism (principal); L89.324 Pressure ulcer of left buttock, stage 4; L89.314 Pressure ulcer of right buttock, stage 4; L89.154 Pressure ulcer of sacral region, stage 4; R65.21 Severe sepsis with septic shock; J96.21 Acute and chronic respiratory failure with hypoxia; J69.0 Pneumonitis due to inhalation of food and vomit; E43 Unspecified severe protein-calorie malnutrition; N17.0 Acute kidney failure with tubular necrosis; G82.50 Quadriplegia, unspecified; J15.0 Pneumonia due to Klebsiella pneumoniae; N39.0 Urinary tract infection, site not specified; E87.1 Hypo-osmolality and hyponatremia; Z99.11 Dependence on respirator [ventilator] status; Z68.23 Body mass index [BMI] 23.0-23.9, adult; D64.9 Anemia, unspecified; E83.42 Hypomagnesemia; I10 Essential (primary) hypertension; I48.91 Unspecified atrial fibrillation; L98.429 Non-pressure chronic ulcer of back with unspecified severity; R73.03 Prediabetes; Z90.49 Acquired absence of other specified parts of digestive tract; Z93.0 Tracheostomy status; Z93.1 Gastrostomy status; Z93.3 Colostomy status; K57.90 Diverticulosis of intestine, part unspecified, without perforation or abscess without bleeding; M62.838 Other muscle spasm
CPT/HCPCS: 36415; 36600; 71045; 74018; 76770; 80048; 80053; 80202; 80305; 81001; 82140; 82150; 82550; 82607; 82728; 82746; 82803; 83036; 83540; 83605; 83690; 83735; 83880; 84100; 84439; 84443; 84484; 85025; 85045; 85610; 85730; 86870; 86886; 86900; 86901; 86920; 87040; 87070; 87081; 87086; 87186; 87205; 89220; 93005; 94003; 94640; 96361; 96365; 96367; 96375; 99285; J0282; J1160; J1200; J1265; J1642; J1644; J1940; J2001; J2060; J2185; J2270; J2405; J2543; J3370; J3475; J3480; J3490; J7030; J7042; J7060; J7620; P9016; Q0092; Q0163